=== PATIENT | female | born 1955 | race Caucasian/White ===

== ENCOUNTER 2016-09-11 07:28 | Inpatient (IN) | payer BC ==
--- NOTE | 2016-09-03 21:38 | HP ---
HISTORY AND PHYSICAL: DATE OF SURGERY: 09/11/16 DATE OF OFFICE VISIT: 08/31/16 CHIEF COMPLAINT: Left knee pain. PROCEDURE: Left total knee arthroplasty. HISTORY OF PRESENT ILLNESS: Ms. Lennon is a 60-year-old female with complaints of left knee pain secondary to advanced osteoarthritis. She has failed conservative management and elected to proceed with a left total knee arthroplasty, which is scheduled for 09/11/[address] Almaguer. PAST MEDICAL HISTORY: Hypertension, diabetes, thyroid disease, and osteoarthritis. PAST SURGICAL HISTORY: Tubal ligation, vulvectomy. CURRENT MEDICATIONS: 1. Metformin. 2. Tolterodine tartrate. 3. Latanoprost. 4. Amlodipine. 5. Lisinopril. 6. Timolol. 7. Vitamin B12. 8. Zyrtec. ALLERGIES: To HYDROCHLOROTHIAZIDE, METOPROLOL, PEANUTS, and LATEX. FAMILY HISTORY: Prostate cancer, asthma. SOCIAL HISTORY: She is a 60-year-old female. She lives alone. 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 She does not smoke, use drugs, or alcohol. REVIEW OF SYSTEMS: A complete 14-point review of systems was reviewed with the patient. All was negative or noncontributory. PHYSICAL EXAMINATION GENERAL: She is well developed, well nourished, in no acute distress. VITAL SIGNS: She stands 5 feet 5 inches tall, weighs 235 pounds. Her blood pressure is 152/93. Her heart rate is 70. HEENT: Normocephalic, atraumatic. NECK: Supple. No palpable lymph nodes. Trachea is midline. PULMONARY: Lungs are clear to auscultation bilaterally. No wheezes, rhonchi, or rales. CARDIO: Regular rate and rhythm. Strong S1, S2. No murmurs, gallops, or rubs. ABDOMEN: Soft, nontender, nondistended. NEUROLOGICAL: She is alert and oriented x3. Cranial nerves II through XII are intact. MUSCULOSKELETAL: Left lower extremity: The skin is intact. She has moderate joint effusion. Tenderness over the medial and lateral joint line. Her lower extremity muscle group strengths are intact to 5/5. She has intact sensation and 2+ dorsalis pedis pulses. ASSESSMENT AND PLAN: Ms. Lennon is a 60-year-old female with complaints of left knee pain secondary to advanced osteoarthritis. She has failed conservative management and has elected to proceed with a left total knee arthroplasty, which is scheduled for 09/11/[address] Almaguer discussed the risks and benefits of the surgery at today's visit and all of her questions were answered. Percocet, Colace, and Coumadin were sent to her pharmacy for postoperative pain control and DVT prophylaxis. She will see Dr. Almaguer back in 10 to 14 days after the surgery. NELLY CHACON [id number]/[facility] #: [id number]
[~2016-09-11 07:28] MED LIST: Buffered Lidocaine 1% SYRIN* 3 ML/SYR SYRINGE INTRADERM ONE
[2016-09-11] MEDS ORDERED: ceFAZolin 2 GM PREMIX(*) 2 GM/50 ML BAG IVPB ONE (07:33)
[2016-09-11] MEDS ORDERED: Midazolam* 1 MG/ML 5 ML VIAL (5 MG) ONE (09:04)
[2016-09-11] MEDS ORDERED: fentaNYL* 50 MCG/ML 2 ML VIAL (100 MCG VIAL) ONE (09:04)
[2016-09-11] MEDS ORDERED: Morphine PF AMP (0.5MG/ML)* 5 MG/10 ML AMP ONE (10:01)
[2016-09-11] MEDS ORDERED: Bupivacaine 0.5% SDV PF* 30 ML VIAL ONE (10:02)
[2016-09-11] MEDS ORDERED: Midazolam* 1 MG/ML 2 ML VIAL (2 MG) ONE (10:19)
[2016-09-11] MEDS ORDERED: Dexamethasone IV* 4 MG/ML 1 ML (4 MG) ONE (10:26)
[2016-09-11] MEDS ORDERED: Hetastarch in NS* 500 ML IV ONE (10:27)
[2016-09-11] MEDS ORDERED: diPHENhydraMINE IV* 50 MG/ML 1 ml VIAL (BENADRYL) ONE (10:27)
[2016-09-11] MEDS ORDERED: Dexmedetomidine* 200 MCG/2 ML 2 ML VIAL ONE (10:27)
[2016-09-11] MEDS ORDERED: DiMENhydriNATE IV* 50 MG/ML VIAL IV PUSH PRN (11:15)
[2016-09-11] MEDS ORDERED: Levalbuterol 0.63MG/3ML NEB INH PRN (11:15)
[2016-09-11] MEDS ORDERED: Ondansetron INJ* 2 MG/ML VIAL IV PRN ×2 (11:15→11:17)
[2016-09-11] MEDS ORDERED: fentaNYL* 50 MCG/ML 2 ML VIAL (100 MCG VIAL) IV PRN (11:15)
[2016-09-11] MEDS ORDERED: Acetaminophen TAB* 325 MG PO PRN (11:15)
[2016-09-11] MEDS ORDERED: HYDROcodone/ACETAMIN 5-325 MG* 1 TAB PO PRN ×2 (11:17)
[2016-09-11] MEDS ORDERED: PROCHLORPERAZINE INJ 5 MG/ML 2 ML VIAL IV PRN (11:17)
[2016-09-11] MEDS ORDERED: Naloxone* 0.4 MG/ML 1 ML VIAL IV PRN (11:17)
[2016-09-11] MEDS ORDERED: Nalbuphine* 20 MG/ML 1 ML VIAL IV PRN (11:17)
[2016-09-11] MEDS ORDERED: Bupivacaine 0.5% W/EPI SDV* 30 ML VIAL ONE (11:24)
[2016-09-11] MEDS ORDERED: Scopolamine 1.5 mg* PATCH TRANSDERM SCH (12:00)
[2016-09-11] MEDS ORDERED: Scopolomine PATCH Remove* 1 NOTE MISC PATCH OFF SCH (12:00)
[2016-09-11] MEDS ORDERED: Ketorolac INJ* 30 MG/ML 1 ML VIAL ONE (12:38)
[2016-09-11] MEDS ORDERED: Polyethylene Glycol 3350* 17 GM PACKET PO PRN (13:22)
[2016-09-11] MEDS ORDERED: Bisacodyl SUPP* 10 MG SUPP PR PRN (13:22)
[2016-09-11] MEDS ORDERED: LACTULOSE* 30 ML UDC PO PRN (13:22)
[2016-09-11] MEDS ORDERED: Albuterol HFA INHALER* 8 gm MDI INH PRN (13:26)
--- NOTE | 2016-09-11 14:19 | RAD ---
INDICATION: Status post total left knee replacement surgery. COMPARISON: Comparison is made with a prior x-ray study of the left knee from October 21, 2015. TECHNIQUE: 2 views of the left knee were obtained. FINDINGS: The patient is status post total left knee replacement surgery. The bones and prostheses are in normal alignment. There is a single surgical drain present anterior to the distal femur. IMPRESSION: STATUS POST TOTAL LEFT KNEE REPLACEMENT SURGERY.
[2016-09-11] MEDS ORDERED: Dextrose 50% Syringe 50 ML* 25 GM/50 ML SYRINGE IV PUSH PRN (14:46)
[2016-09-11] MEDS: Acetaminophen TAB* 325 MG PO SCH ×2 (15:48→22:00)
[2016-09-11] MEDS ORDERED: Warfarin TAB(*) 6 MG PO ONE (17:00)
[2016-09-11] MEDS: ceFAZolin 1 GM in Dextrose (*) 1 GM/50 ML BAG IVPB SCH (17:55)
[2016-09-11] MEDS: Latanoprost 0.005%* 2.5 ml BTL BOTH EYES SCH (17:56)
[2016-09-11] MEDS: Insulin LISPRO* 1 UNITS UNIT SUBCUT SCH (17:57)
[2016-09-11 21:30] LABS: Manual Entry Verification MD; Rapid HIV INT CONT QC Line Present; Rapid HIV Kit Lot# F209005
[2016-09-11] MEDS: Magnesium Hydroxide LIQ* 30 ML UDC PO SCH (22:00)
[2016-09-11] MEDS: Docusate CAP* 100 MG PO SCH (22:00)
[2016-09-11] MEDS: diPHENhydraMINE IV* 50 MG/ML 1 ml VIAL (BENADRYL) IV PRN (22:30)
--- NOTE | 2016-09-11 22:30 | CONS ---
CC: Dr. Ortiz; Dr. Almaguer CONSULTATION REPORT: DATE OF CONSULT: 09/11/16 PRIMARY CARE PROVIDER: Dr. Ortiz ATTENDING PHYSICIAN WHILE IN THE HOSPITAL: Dr. Joslyn Lujan (report being dictated by Johnnie reeves, DAVON). REQUESTING PHYSICIAN FOR CONSULTATION: Janet Almaguer MD REASON FOR MEDICAL CONSULTATION: Evaluation of medical problems and medical management. HISTORY OF PRESENTING ILLNESS: I refer you to Dr. Almaguer's H and P for further details. In short, Chente Lennon is a 60-year-old female patient that presents to orthopedic service today with complaints o f left knee pain. She actually was coming in for an elective left total knee replacement. She has been dealing in the outpatient setting with left knee pain for some time due to advanced osteoarthri tis. She failed conservative therapy and she elected to proceed with a left total knee. She does c arry a history of diabetes, hypertension, thyroid disease, which she is following with Dr. Pete for f or an official diagnosis, history of glaucoma and asthma, and because of this, we were asked to eval uate. She was evaluated in the PACU. She said she is feeling well. She said she feels a little ti red, but she denies having any chest pain, denies feeling like she is going to pass out, denies feel ing dizzy, denies having any nausea, denies having any abdominal pain, she denies having any chest p ain or any shortness of breath. She says that she is not having any pain in her knee. She did rece sonia Duramorph. She says she is feeling well. She says that she just feels a little drowsy. I thin k because of her medical complexity, we are asked to evaluate and consult. REVIEW OF SYSTEMS: There is no documented fever. She denied having significant weight change. The re was no double vision. There is no ear discharge. She denies having any rhinorrhea. There is no sore throat, no thyroid enlargement, denies having any chest pain. There is no orthopnea, no noctu rnal dyspnea. There is no abdominal pain. No nausea, no vomiting. No dysuria, no frequency. No s eizure, no loss of consciousness. No pruritus, no skin ulcerations. Review of 14 systems completed , all others negative. PAST MEDICAL HISTORY: Significant for: 1. Hypertension. 2. Diabetes. 3. Osteoarthritis. 4. Asthma. 5. Glaucoma. 6. Thyroid disease. PAST SURGICAL HISTORY: 1. She has had a tubal ligation. 2. Left total knee replacement done today with Dr. Almaguer. 3. D and C. FAMILY HISTORY: Mother has a history of hypertension and Parkinson's. Father had prostate cancer. SOCIAL HISTORY: She does not smoke. She does not drink. 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 Her surrogate kulwinder on maker is her daughter Dena. ALLERGIES: Include HYDROCHLOROTHIAZIDE, LOPRESSOR, PEANUTS and LATEX. HOME MEDICATIONS: Include: 1. Metformin 1000 mg p.o. daily. 2. Detrol 4 mg daily. 3. Timolol 1 drop both eyes q.a.m. 4. Lisinopril 40 mg daily. 5. Latanoprost 1 drop both eyes q.p.m. 6. Osteo Bi-Flex 2 tablets p.o. daily. 7. B12 1000 mcg daily. 8. Coconut oil 4 capsules p.o. daily. 9. Zyrtec 10 mg p.o. daily. 10. Norvasc 10 mg daily. 11. Ventolin 2 puffs inhaled every 4 hours as needed. 12. Tylenol 1000 mg every 8 hours as needed. PHYSICAL EXAMINATION: VITAL SIGNS: Blood pressure 98/58, pulse 60, respirations 18, O2 sat of 100% , temperature 97.7. GENERAL: At this time, Ms. Lennon is a 60-year-old female patient. She is sitting in the ER [facility]. She does not appear to be in any acute distress. HEENT: Head is atraumatic and normocephalic. Eyes: EOMs are intact. Sclerae was anicteric and no t pale. Throat: Oral mucosa appears to be moist. No oropharyngeal erythema. NECK: Supple. HEART: Heart sounds S1 and S2, regular rate and rhythm. No murmurs, rubs or gallops. LUNGS: Clear to auscultation bilaterally. No wheezes, rales or rhonchi. ABDOMEN: Soft, it was flat, nontender. Bowel sounds are present. EXTREMITIES: Distal CSM checks were intact to the lower extremities. She is able to move the upper extremities with 5/5 strength. She can lift the lower extremity bed only at this point. NEUROLOGIC: She is awake, alert and oriented x3. No gross focal deficits. SKIN: Intact with the exception there is an incision to the left knee, which is covered with a dres sing. Hemovac is intact. LABORATORY DATA AND DIAGNOSTIC STUDIES: Preoperative WBC of 9.6, RBC of 4.98, hemoglobin 13.9, jack tocrit of 42, platelet count of 337. INR 1.06, PTT of 25.5, sodium 139, potassium 4.1, chloride 103 , bicarb 30, BUN 11, creatinine 0.65, glucose was 98. The total bilirubin was 0.5, AST 16, ALT 15, alk phos 88. Urine showed 1+ protein, 1+ blood, trace leukocyte esterase, and present squamous epit helial cells. Preop TSH was less than 0.03. She did have an EKG preoperatively, which showed a normal sinus rhythm at a rate of 68. No ST eleva tions or T-wave inversions. Preop chest x-ray shows no active disease. Old medical records were re viewed. ASSESSMENT AND PLAN: Ms. Lennon is a 60-year-old female patient coming into the PACU today after an e lective total knee. Hospitalist service was asked to evaluate and consult. Recommendations at this point are: 1. Status post left total knee. I will defer the management to Dr. Almaguer and her team. 2. Hypertension. Blood pressure is in the 100s or upper 90s postop. I am going to hold her blood pressure meds and restart as they are tolerated. 3. Diabetes. Hold the metformin and continue the sliding scale. 4. Arthritis. We will defer to the primary team. 5. Asthma. P.r.n. albuterol has been ordered. We will continue. 6. Glaucoma. We will continue her latanoprost. We will hold the timolol. 7. History of thyroid disease. Again, it appears that she is being worked up for hyperthyroidism. She is being worked up with Dr. Pete. We can try to get those records or consult him tomorrow if it is an issue, but we will continue to follow this, and she can follow up with him. 8. DVT prophylaxis. We will defer to the primary team. 9. Code status. Full code. 10. Nutrition. I would recommend a heart healthy, consistent carb diet. TIME SPENT: Time spent on the consult was approximately 60 minutes; greater than half the time spen t [id number] with the patient obtaining the history and physical, the other half the time was spen t going over the plan of care with the patient and implementing the plan of care. I discussed the p britton of care with my attending, Dr. Lujan; she is in agreement. JOHNNIE DAILEY, EDGER HAND [id number]/[facility] #: [id number]
[2016-09-12] MEDS: ceFAZolin 1 GM in Dextrose (*) 1 GM/50 ML BAG IVPB SCH ×2 (00:38→09:12)
[2016-09-12] MEDS: Acetaminophen TAB* 325 MG PO SCH (00:39)
[2016-09-12] MEDS: diPHENhydraMINE IV* 50 MG/ML 1 ml VIAL (BENADRYL) IV PRN (00:40)
[2016-09-12] MEDS ORDERED: oxyCODONE TAB* 5 MG TAB PO PRN (03:00)
[2016-09-12] MEDS ORDERED: oxyCODONE/Acetamin 5/325 MG* TAB PO PRN (03:00)
[2016-09-12] MEDS ORDERED: Ondansetron TAB* 4 MG PO PRN (03:00)
[2016-09-12] MEDS ORDERED: Ondansetron INJ* 2 MG/ML VIAL IV PRN (03:00)
[2016-09-12] MEDS ORDERED: diPHENhydraMINE IV* 50 MG/ML 1 ml VIAL (BENADRYL) IV PRN (03:00)
[2016-09-12] MEDS ORDERED: Acetaminophen TAB* 325 MG PO PRN (03:00)
[2016-09-12] MEDS ORDERED: diPHENhydraMINE PO* 25 MG PO PRN (03:00)
[2016-09-12 07:28] LABS: Hematocrit 27 % (35-47); Hemoglobin 9.1 g/dl (12.0-16.0); Mean Corpuscular HGB Conc 34 g/dl (31-36); Mean Corpuscular Hemoglobin 28 pg (27-31); Mean Corpuscular Volume 85 fL (80-97); Mean Platelet Volume 8 um3 (7.4-10.4); Red Blood Count 3.21 10^6/ul (4.0-5.4); Red Cell Distribution Width 13 % (10.5-15); White Blood Count 10.2 10^3/ul (3.5-10.8)
[2016-09-12 07:33] LABS: BUN/Creatinine Ratio 19.2 (8-20); Calcium 8.3 mg/dL (8.6-10.3); EGFR African American 155.2 (>60); EGFR Non-African American 120.7 (>60); Potassium 4.1 mmol/L (3.5-5.0)
[2016-09-12] MEDS: Insulin LISPRO* 1 UNITS UNIT SUBCUT SCH ×3 (07:33→17:30)
[2016-09-12] MEDS ORDERED: NON FORMULARY MED* (Lisinopril [Lisinopril 40 Mg-] 40 MG) PO SCH (09:00)
[2016-09-12] MEDS ORDERED: OPTH BOTH EYES SCH (09:00)
[2016-09-12] MEDS ORDERED: AMLODIPINE BESYLATE PO SCH (09:00)
[2016-09-12] MEDS ORDERED: TIMOLOL 0.5% BOTH EYES SCH (09:00)
[2016-09-12] MEDS: Oxybutynin XL TAB* 5 MG PO SCH (09:10)
[2016-09-12] MEDS: Docusate CAP* 100 MG PO SCH ×2 (09:11→20:20)
[2016-09-12] MEDS: Cyanocobalamin TAB* 500 MCG PO SCH (09:11)
[2016-09-12] MEDS: Cetirizine* 10 MG TAB PO SCH (09:11)
[2016-09-12] MEDS: Magnesium Hydroxide LIQ* 30 ML UDC PO SCH ×2 (09:12→20:20)
--- NOTE | 2016-09-12 09:34 | PN ---
Progress Note - Progress Note SOAP: Subjective: []Patient seen, OOB in chair. Feeling mild nausea after percocet. No SOB or Chest pain. Pain managed adequately. Objective: [] Vital Signs Temp 97.8 F 09/12/16 07:07 Pulse 67 09/12/16 07:07 Resp 18 09/12/16 09:13 BP 107/42 09/12/16 07:07 Pulse Ox 100 09/12/16 08:00 Intake & Output 09/11/16 09/12/16 09/12/16 18:59 06:59 18:59 Intake Total 2250 2653 Output Total 400 1325 700 Balance 1850 1328 -700 Weight 231 lb Intake: IV Fluids 2250 570 HEXTEND 500 LR 1700 570 NS 50ML, Cefazolin 2G 50 IVPB 1043 LR 1043 Oral 1040 Output: Lehman 400 1025 650 Emesis 300 50 Laboratory Results - last 24 hr 09/11/16 09/11/16 09/11/16 07:45 13:47 14:31 WBC RBC Hgb Hct MCV MCH MCHC RDW Plt Count MPV Neut % (Auto) Lymph % (Auto) Ford % (Auto) Eos % (Auto) Baso % (Auto) Absolute Neuts (auto) Absolute Lymphs (auto) Absolute Monos (auto) Absolute Eos (auto) Absolute Basos (auto) Absolute Nucleated RBC Nucleated RBC % INR (Anticoag Therapy) Sodium Potassium Chloride Carbon Dioxide Anion Gap BUN Creatinine Est GFR ( Amer) Est GFR (Non-Af Amer) BUN/Creatinine Ratio Glucose POC Glucose (mg/dL) 105 139 H Calcium HIV 1&2 Antibody Rapid Nonreactive 09/11/16 09/12/16 09/12/16 16:42 06:29 06:29 WBC 10.2 RBC 3.21 L Hgb 9.1 L Hct 27 L MCV 85 MCH 28 MCHC 34 RDW 13 Plt Count 234 MPV 8 Neut % (Auto) 65.5 Lymph % (Auto) 21.5 L Ford % (Auto) 12.5 H Eos % (Auto) 0.2 Baso % (Auto) 0.3 Absolute Neuts (auto) 6.7 Absolute Lymphs (auto) 2.2 Absolute Monos (auto) 1.3 H Absolute Eos (auto) 0 Absolute Basos (auto) 0 Absolute Nucleated RBC 0 Nucleated RBC % 0 INR (Anticoag Therapy) 1.16 H Sodium Potassium Chloride Carbon Dioxide Anion Gap BUN Creatinine Est GFR ( Amer) Est GFR (Non-Af Amer) BUN/Creatinine Ratio Glucose POC Glucose (mg/dL) 202 H Calcium HIV 1&2 Antibody Rapid 09/12/16 09/12/16 06:29 07:24 WBC RBC Hgb Hct MCV MCH MCHC RDW Plt Count MPV Neut % (Auto) Lymph % (Auto) Ford % (Auto) Eos % (Auto) Baso % (Auto) Absolute Neuts (auto) Absolute Lymphs (auto) Absolute Monos (auto) Absolute Eos (auto) Absolute Basos (auto) Absolute Nucleated RBC Nucleated RBC % INR (Anticoag Therapy) Sodium 137 Potassium 4.1 Chloride 104 Carbon Dioxide 28 Anion Gap 5 BUN 10 Creatinine 0.52 Est GFR ( Amer) 155.2 Est GFR (Non-Af Amer) 120.7 BUN/Creatinine Ratio 19.2 Glucose 122 H POC Glucose (mg/dL) 128 H Calcium 8.3 L HIV 1&2 Antibody Rapid Left knee dressings are dry and intact Hemovac drain removed, tip intact- 400cc in canister Calf nontender and soft +DF/PF left foot neuro intact Assessment: []s/p Left total knee arthroplasty POD #1 Plan: []PT/OT WBAT LLE Coumadin w Lovenox bridge: 6mg today Home on Saturday
[2016-09-12] MEDS ORDERED: HYDROcodone/ACETAMIN 5-325 MG* 1 TAB PO PRN (09:37)
--- NOTE | 2016-09-12 11:38 | OP ---
OPERATIVE NOTE: DATE OF OPERATION: 09/11/16 DATE OF : 57 ATTENDING SURGEON: Janet Almaguer MD CHURCH BUSINESS ADMINISTRATOR: NELLY Mendoza. ANESTHESIOLOGIST: Dr. Roger. ANESTHESIA: Spinal with adductor nerve block. PRE-OP DIAGNOSIS: Severe end-stage degenerative osteoarthritis of the left knee joint. POST-OP DIAGNOSIS: Severe end-stage degenerative osteoarthritis of the left knee joint. OPERATIVE PROCEDURE: Left total knee arthroplasty. TOURNIQUET TIME: 68 minutes. COMPLICATIONS: None. ESTIMATED BLOOD LOSS: 400 cc. SPECIMEN: Bone and cartilage from the left knee joint sent to pathology. HARDWARE USED: This is cemented left total knee arthroplasty hardware. For the femur, a size 4 lef t posterior stabilized Legion Oxinium femoral component. For the tibia, a size 3 left tibial base p late. Insert was a 11-mm posterior stabilized articular insert and the patella was 32-mm 3-peg all poly patella. Two packages of Simplex bone cement were used. BRIEF HISTORY/INDICATIONS: Ms. Lennon is a 60-year-old morbidly obese female with years of increasing ly severe bilateral knee pain, left greater than right. She failed conservative treatment with anti inflammatories, pain medications, attempted weight loss, intraarticular injections, and ambulatory a ssistive devices as well as physical therapy. She elected to have left total knee arthroplasty due to continued pain and decreased quality of life. Informed consent was obtained from the patient. She understood the risks of surgery, included but w ere not limited to bleeding, infection, damage to nearby structures, continued pain, need for furthe r surgery, intraoperative fracture, nerve palsy, hardware failure or loosening, stroke, heart attack , blood clot, and . She wished to proceed. INTRAOPERATIVE FINDINGS: Intraoperatively, the patient is noted to have severe stiffness of the kne e preoperatively from 20 to 70 degrees of motion. Intraoperatively, the exposure was difficult becau se of the knee stiffness and extensive osteophytosis in the posterior aspect of the knee. She was n oted to have severe end-stage arthritis of the knee joint, which was tricompartmental, but worst in the medial and patellofemoral compartments. DESCRIPTION OF PROCEDURE: Ms. Lennon was identified in the pre-anesthesia unit. Her left lower extre mity was marked as the correct operative side. Informed consent was signed and placed in the chart. The patient was taken to the operating room and placed under spinal anesthesia with an adductor ne rve block. Tourniquet was placed on the left side. A Lehman catheter was placed. Left lower extrem ity was prepped and draped in the usual sterile fashion. Preop time-out was made to correctly ident kathe the patient's side and site. Appropriate perioperative antibiotics were given within 1 hour of incision. Tourniquet was inflated and total tourniquet time for this procedure was 68 minutes. A midline 15 c m incision was made with a 10 blade and carried down to the extensor mechanism. A new 10-blade was used to make a standard medial parapatellar arthrotomy. The patella was everted and the oscillating saw was used to remove 8 mm of patellar bone and cartilage. Osteophytes were carefully removed. T his was done initially to aid with exposure. Pre-existing range of motion was about 20 to 75 degree s of flexion. Electrocautery was used to subperiosteally elevate soft tissue off the superomedial t ibia to the mid sagittal plane. Osteophytes were carefully removed from around the medial tibial pl ateau. The knee was flexed up as much as possible. A drill was used to enter the distal femur. In tramedullary distal femoral cutting block was pinned on the distal femur. An extra 2 mm of distal f emur was carefully taken with an oscillating saw. ACL and anterior horn of the lateral meniscus were sharply released. The external rotation guide wa s placed on the distal femur and pinned into position. Distal femur was sized to a size 4. A size 4 multi-cutting jig was carefully pinned on the distal femur. Oscillating saw was used to make the appropriate 4 chamfer cuts. At this point, the knee was flexed to about 90 degrees. Osteophytes were carefully removed along th e posterior femur. There were many loose bodies in the posterior capsule. Extramedullary tibial cutting guide was pinned into proper position on the proximal tibia. Oscillat ing saw was used to make a proximal tibial cut, perpendicular to the mechanical access of the tibia. The bone was carefully removed. Once again, the posterior capsule was checked for any osteophytes . The knee was brought out into full extension and noted to have good placement of spacer block wit h full extension. The medial and lateral ligamentous balancing was equal. Lamina bitumen plant operator was placed both medially and laterally. Any remaining meniscus was carefully remove d with electrocautery. Curved osteotome was used to remove any remaining osteophytes along the post erior femoral condyles. Tibial tray and drop marianela was placed to once again confirm satisfactory prox imal tibial cut. This was confirmed. A size 4 left femoral trial was impacted on the distal femur. This trial had good fit. The box for the posterior stabilized implant was prepared using a reamer and box cut osteotome. A size 3 tibia l tray trial with a 9 mm insert trial was placed. The knee was taken through range of motion and not ed to have full extension to 120 degrees of flexion. Flexion was inhibited by morbid obese body habitus. There was good flexion and extension gap balanc ing. Good medial and lateral stability. The patella was everted. The patellar cut seemed to be satisfactory. The patella was sized to a si ze 32. Three peg holes were drilled through the size 32 guide. The 32 trial patella was placed. Th e knee was taken through range of motion. There was satisfactory patellofemoral tracking. All trials were carefully removed. The tibia was subluxed anteriorly and sized to a size 3. Proxim al tibia was prepared using a keel punch size 3. All bony cut surfaces were copiously irrigated and dried. The final implants were cemented into place using 2 packages of Simplex bone cement. This was first the tibia, followed by the femur, and last the patella. An 11-mm insert trial was placed and the knee was brought out into full extension. The cement was allowed to fully cure and the tour niquet was turned down at 68 minutes and the excess cement was carefully removed. Once the cement was fully cured, the knee was checked for any bleeding or extra cement. Extra cemen t was carefully removed. Electrocautery was used to obtain meticulous hemostasis. A size 11 posterior stabilized insert was chosen as the final implant. This was locked into positio n on the tibial tray without difficulty. Stability of the insert was checked and rechecked and note d to be stable. Final range of motion with full extension to 120 degrees of flexion. The knee was copiously irrigat ed with sterile saline. The extensor mechanism was closed over a medium Hemovac drain using interru pted #1 Vicryl. The rest of the incision was closed in a layered fashion using 0 and 2-0 Vicryl. S kin was closed using running 3-0 nylon suture. Sterile Xeroform, 4x4's, and Webril were used to cover the incision. Ernesto wrap and cold pack were pl aced over this. The patient's anesthesia was reversed without difficulty. She was taken to the PACU in stable condi tion. Intended weightbearing will be weightbearing as tolerated. Intended DVT prophylaxis will be Coumadin with a Lovenox bridge. [id number]/[facility] #: [id number]
[2016-09-12] MEDS: HYDROcodone/ACETAMIN 5-325 MG* 1 TAB PO PRN ×3 (12:05→21:38)
[2016-09-12] MEDS: Enoxaparin(*) 30 MG/0.3 ML SYR SUBCUT SCH (13:54)
--- NOTE | 2016-09-12 14:57 | PN ---
Subjective Date of Service: 09/12/16 Interval History: Patient is POD 1 s/p TKR. She offers no acute complaints. She reports her pain is well controlled. She reports some vomiting overnight, but it has improved this am. No persistent nausea. No CP or SOB. Objective Active Medications: Acetaminophen (Tylenol Tab*) 650 mg PO Q4H PRN PRN Reason: mild pain or fever Hydrocodone Bitart/Acetaminophen ([place] 5-325 Tab*) 1 tab PO Q3H PRN PRN Reason: mild to moderate pain Hydrocodone Bitart/Acetaminophen ([place] 5-325 Tab*) 2 tab PO Q3H PRN PRN Reason: moderate to severe pain Last Admin: 09/12/16 12:05 Dose: 2 tab Albuterol (Ventolin Hfa Inhaler*) 2 puff INH Q4H PRN PRN Reason: Allergy Symptoms Bisacodyl (Dulcolax Supp*) 10 mg MO DAILY PRN PRN Reason: constipation Cetirizine HCl (Zyrtec*) 10 mg PO DAILY [facility] PRN Reason: Protocol Last Admin: 09/12/16 09:11 Dose: 10 mg Cyanocobalamin (Vitamin B12 Tab*) 1,000 mcg PO DAILY [facility] Last Admin: 09/12/16 09:11 Dose: 1,000 mcg Dextrose (D50w Syringe 50 Ml*) 12.5 gm IV PUSH .FOR FS < 60 - SS PRN PRN Reason: FS < 60 Diphenhydramine HCl (Benadryl Iv*) 12.5 mg IV Q6H PRN PRN Reason: PRURITIS Diphenhydramine HCl (Benadryl Po*) 25 mg PO Q6H PRN PRN Reason: itching Docusate Sodium (Colace Cap*) 100 mg PO BID [facility] Last Admin: 09/12/16 09:11 Dose: 100 mg Enoxaparin Sodium (Lovenox(*)) 30 mg SUBCUT Q24H [facility] Last Admin: 09/12/16 13:54 Dose: 30 mg Gabapentin (Neurontin Cap(*)) 300 mg PO BEDTIME [facility] Lactated Ringer's (Lactated Ringers 1000 Ml Bag*) 1,000 mls @ 100 mls/hr IV PER RATE [facility] Last Admin: 09/12/16 11:54 Dose: 100 mls/hr Insulin Human Lispro (Humalog*) 0 units SUBCUT AC [facility] PRN Reason: Protocol Last Admin: 09/12/16 12:06 Dose: 2 unit Lactulose (Lactulose*) 30 ml PO Q6H PRN PRN Reason: constipation Latanoprost (Xalatan 0.005%*) 1 drop BOTH EYES QPM [facility] Last Admin: 09/11/16 17:56 Dose: 1 drop Magnesium Hydroxide (Milk Of Magncandelaria Liq*) 30 ml PO BID [facility] Last Admin: 09/12/16 09:12 Dose: 30 ml Ondansetron HCl (Zofran Inj*) 4 mg IV Q6H PRN PRN Reason: nausea Last Admin: 09/12/16 08:34 Dose: 4 mg Ondansetron HCl (Zofran Tab*) 4 mg PO Q6H PRN PRN Reason: NAUSEA Oxybutynin Chloride (Ditropan Xl Tab*) 10 mg PO DAILY [facility] PRN Reason: Protocol Last Admin: 09/12/16 09:10 Dose: 10 mg Oxycodone HCl (Roxycodone Tab*) 10 mg PO Q4H PRN PRN Reason: breakthrough pain Last Admin: 09/12/16 07:32 Dose: 10 mg Oxycodone/Acetaminophen (Percocet 5/325 Tab*) 1 tab PO Q3H PRN PRN Reason: PAIN - MODERATE Pharmacy Profile Note (Scopolomine Patch Remove*) 1 note PATCH OFF .AFTER 72 HOURS [facility] Stop: 09/14/16 11:18 Pharmacy Profile Note (Coumadin Daily Reminder*) 1 note FOLLOW UP 1700 [facility] Polyethylene Glycol/Electrolytes (Miralax*) 17 gm PO DAILY PRN PRN Reason: Constipation Scopolamine (Transderm-Scop 1.5 Mg Patch*) 1 patch TRANSDERM Q72H [facility] Last Admin: 09/11/16 15:23 Dose: Not Given Warfarin Sodium (Coumadin Tab(*)) 6 mg PO ONCE@1700 [facility] PRN Reason: Protocol Stop: 09/12/16 17:01 Vital Signs: Temp Pulse Resp BP Pulse Ox 97.2 F 78 18 137/66 98 09/12/16 11:42 09/12/16 11:42 09/12/16 12:05 09/12/16 11:42 09/12/16 11:42 Appearance: Well appearing, in NAD Respiratory: Symmetrical Chest Expansion and Respiratory Effort, Clear to Auscultation Cardiovascular: NL Sounds; No Murmurs; No JVD, RRR Abdominal: NL Sounds; No Tenderness; No Distention Extremities: No Edema Skin: No Rash or Ulcers Neurological: Alert and Oriented x 3 Result Diagrams: 09/12/16 06:29 09/12/16 06:29 Assess/Plan/Problems-Billing Assessment: This is a 60 yo female with NIDDM, HTN, hypothyroidism, glaucoma and mild intermittent asthma who is s/p L TKR by Dr Almaguer 09/11/16. Hospitalist group has been consulted for medical comanagement. - Patient Problems (1) Status post total left knee replacement Comment: POD 1 Management per ortho team (2) Diabetes Comment: NIDDM HgbA1c 5.5% Metformin has been held postoperatively Monitoring glucose with meals and will cover hyperglycemia with SS Humalog (3) Hypertension Comment: Normotensive amlodipine and lisinopril have been held today, will resume for tomorrow (4) Hypothyroidism (5) Asthma Comment: Without acute exacerbation mild-intermittent Seems to be mostly allergy mediated, rarely requires her inhaler (6) Glaucoma (7) DVT prophylaxis Comment: per ortho Status and Disposition: Discharge planning per ortho. No acute medical concerns
[2016-09-12] MEDS ORDERED: Warfarin TAB(*) 6 MG PO SCH (17:00)
[2016-09-12] MEDS: Latanoprost 0.005%* 2.5 ml BTL BOTH EYES SCH (17:28)
[2016-09-12] MEDS ORDERED: Gabapentin CAP(*) 300 MG PO SCH (21:00)
[2016-09-13] MEDS: HYDROcodone/ACETAMIN 5-325 MG* 1 TAB PO PRN ×3 (07:11→15:37)
[2016-09-13] MEDS: Insulin LISPRO* 1 UNITS UNIT SUBCUT SCH ×3 (07:12→17:09)
[2016-09-13 07:45] LABS: Hematocrit 28 % (35-47); Hemoglobin 9.4 g/dl (12.0-16.0)
[2016-09-13] MEDS ORDERED: Lisinopril TAB* 10 MG PO SCH (09:00)
[2016-09-13] MEDS ORDERED: amLODIPine TAB* 5 MG PO SCH (09:00)
[2016-09-13] MEDS: Magnesium Hydroxide LIQ* 30 ML UDC PO SCH (09:02)
[2016-09-13] MEDS: Docusate CAP* 100 MG PO SCH (09:03)
[2016-09-13] MEDS: Cyanocobalamin TAB* 500 MCG PO SCH (09:03)
[2016-09-13] MEDS: Oxybutynin XL TAB* 5 MG PO SCH (09:03)
[2016-09-13] MEDS: Cetirizine* 10 MG TAB PO SCH (09:03)
--- NOTE | 2016-09-13 09:17 | PN ---
Progress Note - Progress Note SOAP: Subjective: Pt. doing well, pain controlled. Objective: LLE - dressing changed, inc c/d/i. distally no edema, nvi. Vital Signs: Temp Pulse Resp BP Pulse Ox 98.5 F 101 18 133/66 100 09/13/16 07:26 09/13/16 07:26 09/13/16 09:05 09/13/16 07:26 09/13/16 07:26 Laboratory Results - last 24 hr 09/11/16 09/12/16 09/12/16 14:31 06:29 12:01 Hgb Hct INR (Anticoag Therapy) POC Glucose (mg/dL) 134 H Hemoglobin A1c 5.5 Hepatitis B Antibody Nonreactive Hep Bs Antibody, Quant < 3.10 Hepatitis C Antibody Nonreactive 09/12/16 09/13/16 09/13/16 17:27 06:59 06:59 Hgb 9.4 L Hct 28 L INR (Anticoag Therapy) 1.67 H POC Glucose (mg/dL) 122 H Hemoglobin A1c Hepatitis B Antibody Hep Bs Antibody, Quant Hepatitis C Antibody 09/13/16 07:06 Hgb Hct INR (Anticoag Therapy) POC Glucose (mg/dL) 144 H Hemoglobin A1c Hepatitis B Antibody Hep Bs Antibody, Quant Hepatitis C Antibody Assessment: 60 yo POD 2 s/p LTKA Plan: wbat lle pt/ot 6 mg coumadin tonight plan d/c to home today with vns give lovenox dose today
[2016-09-13] MEDS: Enoxaparin(*) 30 MG/0.3 ML SYR SUBCUT SCH (13:32)
[2016-09-13 16:35] VITALS: BP 133/74
--- NOTE | 2016-09-14 01:11 | DS ---
DISCHARGE SUMMARY: DATE OF ADMISSION: 09/11/16 DATE OF DISCHARGE: 09/13/16 ATTENDING PHYSICIAN: Janet Almaguer MD ADMISSION DIAGNOSIS: Severe end-stage degenerative arthritis of the left knee. DISCHARGE DIAGNOSES: Severe end-stage degenerative arthritis of the left knee. SURGERY PERFORMED: Left total knee arthroplasty. HOSPITAL COURSE: The patient is a 60-year-old female who had years of increasingly severe bilateral knee pain with the left being much more severe than the right. The patient failed conservative management with pain medications , antiinflammatories, intraarticular cortisone injections, physical therapy, and assistive ambulatory devices. She elected to proceed with surgical intervention and was taken to the operating room under the care of Dr. Janet Almaguer on the date of 09/11/16. The patient tolerated the procedure well and left the operating room in stable condition. Postoperatively, she mastered her physical therapy and occupational therapy goals without difficulty. She had no acute postoperative complications. She was placed on Coumadin with a Lovenox bridge during her hospital stay. She felt that she was ready for discharge and physical therapy concurred. Therefore, she is discharged home on the date of . CONDITION ON DISCHARGE: The patient is afebrile. Her vital signs are stable. Her left knee incision is healing without evidence of injection. Her nylon sutures are intact. Her calf is soft and nontender. She has full dorsiflexion and plantar flexion of her left ankle. Her gross neurovascular status is intact. Her calf is soft and nontender. PLAN/RECOMMENDATIONS: Discharged to home. Continue with physical therapy bearing weight as tolerated on the left lower extremity. She will continue on Coumadin for DVT prophylaxis. She is instructed to take 6 mg of Coumadin evening 5 p.m. She is instructed to take 2 mg on 09/14/16; 2 mg on 09/15/16; and 2 mg on 09/16/16. She is scheduled to have a repeat INR blood draw on Saturday the . The office will contact her with her next dose thereafter. Her Percocet prescription has been filled at the pharmacy already. She will followup with Dr. Almaguer in 10 to 14 days. She may shower in 48 hours from discharge today. NELLY SANCHEZ [id number]/[facility] #: [id number] JAYA
== END 2016-09-13 17:15 | disposition home health service (06) | DRG 302 ==
LOC: AA 07:28 → SSU 14:59
PROVIDERS: ADMIT Orthopaedic Surgery Adult Reconstructive Orthopaedic Surgery; ATTEND Orthopaedic Surgery Adult Reconstructive Orthopaedic Surgery
PROC: 0SRD0J9 Replacement of Left Knee Joint with Synthetic Substitute, Cemented, Open Approach (ICD-10-PCS; principal; 2016-09-11 10:00)
DX: M17.12 Unilateral primary osteoarthritis, left knee (principal); E66.01 Morbid (severe) obesity due to excess calories; I10 Essential (primary) hypertension; Z68.38 Body mass index [BMI] 38.0-38.9, adult; E11.9 Type 2 diabetes mellitus without complications; J45.909 Unspecified asthma, uncomplicated; E03.9 Hypothyroidism, unspecified; R01.1 Cardiac murmur, unspecified; R11.10 Vomiting, unspecified; H40.9 Unspecified glaucoma; Z79.84 Long term (current) use of oral hypoglycemic drugs; Z82.49 Family history of ischemic heart disease and other diseases of the circulatory system; Z88.8 Allergy status to other drugs, medicaments and biological substances; Z91.010 Allergy to peanuts; Z91.040 Latex allergy status; Z79.01 Long term (current) use of anticoagulants
CPT/HCPCS: 36415; 80048; 83036; 85014; 85018; 85025; 85610; 86703; 86706; 86803; 88305; 88311; 94760; A9270-GY; C1776; J0690; J1100; J1200; J1650; J1885; J2250; J2405; J3010

== ENCOUNTER 2016-10-17 07:22 | Emergency (ER) | payer BC ==
[2016-10-17 08:03] VITALS: BP 155/74
--- NOTE | 2016-10-17 09:38 | UC ---
Throat Pain/Nasal Chad HPI - HPI Summary HPI Summary: [address], COUGH, CONGESTION. GETTING WORSE. NO FEVER OR EAR PAIN. - History of Current Complaint Chief Complaint: UCRespiratory Stated Complaint: SORE THROAT/COUGH Time Seen by Provider: 10/17/16 09:30 Hx Obtained From: Patient Onset/Duration: Gradual Onset, Lasting Days, Still Present Severity: Moderate Pain Intensity: 8 Pain Scale Used: 0-10 Numeric Cough: Sputum Appears - GREEN Associated Signs & Symptoms: Positive: Nasal Discharge. Negative: Wheezing, Hoarseness, Sinus Discomfort, Fever, Vomiting, Rash - Allergies/Home Medications Allergies/Adverse Reactions: Allergies Allergy/AdvReac Type Severity Reaction Status Date / Time Latex Allergy Severe Rash Verified 09/11/16 07:47 Peanut-containing Drug Allergy Severe gi and Verified 09/11/16 07:47 Products vomiting Hydrochlorothiazide Allergy Intermediate rash, Verified 09/11/16 07:47 itching Metoprolol Allergy Intermediate Rash, Verified 09/11/16 07:47 itching PMH/Surg Hx/FS Hx/Imm Hx Endocrine History Of: Reports: Diabetes, Thyroid Disease - md monitoring thyroid Cardiovascular History Of: Reports: Hypertension Respiratory History Of: Reports: Asthma - ALLERGY INDUCED Cancer History Of: Denies: Breast Cancer - Surgical History Surgical History: Yes Surgery Procedure, Year, and Place: left knee replacement 5weeks ago - Family History Known Family History: Positive: Hypertension - Social History Alcohol Use: None Substance Use Type: None Smoking Status (MU): Never Smoked Tobacco - Immunization History Most Recent Influenza Vaccination: 2016 Most Recent Tetanus Shot: up to date Most Recent Pneumonia Vaccination: none Review of Systems Constitutional: Fatigue ENT: Sore Throat, Nasal Discharge Respiratory: Cough Cardiovascular: Negative Gastrointestinal: Negative All Other Systems Reviewed And Are Negative: Yes Physical Exam Triage Information Reviewed: Yes Appearance: No Pain Distress, Well-Nourished, Ill-Appearing - MILD Vital Signs: Initial Vital Signs Temp 98.6 F 10/17/16 07:58 Pulse 79 10/17/16 07:58 Resp 18 10/17/16 07:58 BP 155/74 10/17/16 07:58 Pulse Ox 97 10/17/16 07:58 Vital Signs Reviewed: Yes Eyes: Positive: Conjunctiva Clear ENT: Positive: Hearing grossly normal, Pharynx normal, Nasal congestion, TMs normal Neck: Positive: Supple, Nontender, No Lymphadenopathy Respiratory Exam: Normal Cardiovascular Exam: Normal Abdomen Description: Positive: Soft Musculoskeletal: Positive: No Edema Neurological: Positive: Alert Psychological: Positive: Age Appropriate Behavior Skin: Negative: rashes Throat Pain/Nasal Course/Dx - Differential Dx/Diagnosis Provider Diagnoses: ACUTE URI Discharge - Discharge Plan Condition: Stable Disposition: HOME Patient Education Materials: Upper Respiratory Infection (ED) Referrals: Mauricio Ortiz MD [Primary Care Provider] - If Needed Additional Instructions: ACUTE UPPER RESPIRATORY INFECTION The common cold is a benign self-limited syndrome representing a group of diseases caused by members of several families of viruses. It is the most frequent acute illness in the [place] and throughout the industrialized world. The term "common cold" refers to a mild upper respiratory viral infection involving, to variable degrees, nasal congestion and discharge ( rhinorrhea), sneezing, sore throat, cough, low-grade fever, headache, and malaise. Symptomatic therapy remains the mainstay of common cold treatment. In the absence of convincing evidence of a secondary bacterial infection, antibiotics are not effective in the treatment of the common cold and should not be prescribed. Be advised that the usual course and duration of illness is up to one and a half weeks for patients with a cold, but can last slightly longer; symptoms usually persist longer in smokers.
== END 2016-10-17 09:46 | disposition home or self-care (01) ==
LOC: UCEAST 07:22
DX: J06.9 Acute upper respiratory infection, unspecified (principal); E11.9 Type 2 diabetes mellitus without complications; E07.9 Disorder of thyroid, unspecified; I10 Essential (primary) hypertension
CPT/HCPCS: 99211; G0463

== ENCOUNTER 2017-02-25 13:21 | Emergency (ER) | payer BC ==
[2017-02-25] MEDS ORDERED: Meclizine TAB* 12.5 MG PO ONE ×2 (14:24→15:03)
--- NOTE | 2017-02-25 14:24 | UC ---
Dizzy HPI HPI Summary: allergies and ear congestion ---and began with some vertigo-- - History Of Current Complaint Chief Complaint: UCDizziness Stated Complaint: DIZZY-2 DAYS Time Seen by Provider: 02/25/17 14:16 Hx Obtained From: Patient ?: No Onset/Duration: Gradual Onset, Lasting Days, Still Present Timing: Intermittent Episode Lasting Severity Initially: Mild Severity Currently: Mild Character: Room Spinning Aggravating Factor(s): Position Change Alleviating Factor(s): Rest Associated Signs And Symptoms: Positive: Nausea - Allergies/Home Medications Allergies/Adverse Reactions: Allergies Allergy/AdvReac Type Severity Reaction Status Date / Time Latex Allergy Severe Rash Verified 09/11/16 07:47 Peanut-containing Drug Allergy Severe gi and Verified 09/11/16 07:47 Products vomiting Hydrochlorothiazide Allergy Intermediate rash, Verified 09/11/16 07:47 itching Metoprolol Allergy Intermediate Rash, Verified 09/11/16 07:47 itching PMH/Surg Hx/FS Hx/Imm Hx Previously Healthy: No Endocrine History: Diabetes Cardiovascular History: Hypertension - Surgical History Surgical History: Yes Surgery Procedure, Year, and Place: left knee replacement 5weeks ago - Family History Known Family History: Positive: Hypertension - Social History Occupation: Unemployed Lives: With Family Alcohol Use: None Substance Use Type: None Smoking Status (MU): Never Smoked Tobacco - Immunization History Most Recent Influenza Vaccination: 2016 Most Recent Tetanus Shot: up to date Most Recent Pneumonia Vaccination: none Review of Systems Constitutional: Negative Skin: Negative Eyes: Negative, Other ENT: Negative Respiratory: Negative Cardiovascular: Negative Gastrointestinal: Negative Genitourinary: Negative Motor: Negative Neurovascular: Negative, Other Musculoskeletal: Negative Neurological: Negative Psychological: Negative All Other Systems Reviewed And Are Negative: Yes Physical Exam Triage Information Reviewed: Yes Appearance: Well-Appearing, No Pain Distress, Well-Nourished Vital Signs: Initial Vital Signs Temp 98 F 02/25/17 13:32 Pulse 78 02/25/17 13:32 Resp 18 02/25/17 13:32 BP 154/71 02/25/17 13:32 Pulse Ox 99 02/25/17 13:32 Vital Signs Reviewed: Yes Eye Exam: Normal Eyes: Positive: Conjunctiva Clear, Other: - Perrla, eomi ENT Exam: Normal ENT: Positive: Normal ENT inspection, Hearing grossly normal, Pharynx normal, TMs normal. Negative: Nasal congestion, Nasal drainage, Tonsillar swelling, Tonsillar exudate, Trismus, Muffled/hoarse voice Dental Exam: Normal Dental: Positive: Percussion Tenderness @, Gross Decay/Caries @ Neck exam: Normal Neck: Positive: Supple, Nontender, No Lymphadenopathy Respiratory Exam: Normal Respiratory: Positive: Chest non-tender, Lungs clear, Normal breath sounds, No respiratory distress, No accessory muscle use Cardiovascular Exam: Normal Cardiovascular: Positive: RRR, No Murmur, Pulses Normal, Brisk Capillary Refill Musculoskeletal Exam: Normal Musculoskeletal: Positive: Strength Intact, ROM Intact, No Edema Neurological Exam: Normal Neurological: Positive: Alert, Muscle Tone Normal, Other: - rhomberg (-), no pronator drift, finger to nose wnl Psychological Exam: Normal Skin Exam: Normal Diagnostics - Laboratory Diagnostic Studies Completed/Ordered: UA wnl x +1 blood, glucose 99 - EKG Cardiac Rate: NL Cardiac Rhythm: Sinus: Normal Ectopy: None ST Segment: Normal Re-Evaluation - Re-Evaluation First Eval Change: Improved - symptoms resolved after meclizine Dizzy Course/Dx - Course Course Of Treatment: Meclizine zofran, decongestant, follow with pcp - Differential Dx/Diagnosis Differential Diagnosis/HQI/PQRI: Benign Paroxysmal Positional Vertigo, Labyrinthitis, Meniere's Disease, Transient Ischemic Attack, Vasovagal Reaction Provider Diagnoses: BPPV Discharge - Discharge Plan Condition: Stable Disposition: HOME Prescriptions: Meclizine TAB* [Antivert 12.5 TAB*] 25 mg PO TID PRN #21 tab PRN Reason: Vertigo Ondansetron ODT TAB* [Zofran 4 MG Odt TAB*] 4 mg PO Q8H PRN #6 tab.odt PRN Reason: Nausea/Vomiting Patient Education Materials: Vertigo (ED) Referrals: Mauricio Ortiz MD [Primary Care Provider] - 3 Days
[2017-02-25 14:41] VITALS: BP 139/86
[2017-02-25] MEDS ORDERED: Ondansetron ODT TAB* 4 MG PO ONE (15:03)
== END 2017-02-25 15:27 | disposition home or self-care (01) ==
LOC: UCEAST 13:21
DX: H81.10 Benign paroxysmal vertigo, unspecified ear (principal); R11.0 Nausea; E11.9 Type 2 diabetes mellitus without complications; I10 Essential (primary) hypertension; Z96.652 Presence of left artificial knee joint
CPT/HCPCS: 81003; 93005; 99213; A9270-GY; G0463

== ENCOUNTER 2017-09-16 06:07 | Day surgery (SDC) | payer BC ==
--- NOTE | 2017-09-04 08:42 | HP ---
CC: Dr. Bolanos; Dr. Mauricio Ortiz; Dr. Pete* PREOPERATIVE HISTORY AND PHYSICAL: DATE OF ADMISSION: 09/16/17 This patient is scheduled for same-day surgery admission by Dr. Bolanos on Saturday , 09/16/17. ATTENDING SURGEON: Rama Bolanos MD* (dictated by Chio Green NP). CHIEF COMPLAINT: Thyrotoxicosis. HISTORY OF PRESENT ILLNESS: The patient is a 61-year-old female, referred to Dr. Bolanos by Dr. Pete for evaluation of thyrotoxicosis. The patient reports that over the past year she has been aware of a nodule on the thyroid gland. This was identified by Dr. Ortiz when she was being worked up for a left knee replacement that she ultimately had in August 2016. Initially, her thyroid numbers were somewhat abnormal, but in April 2017, apparently the numbers were worse and she complained of feeling discomfort in the thyroid gland. She also complains of fatigue. She denies other symptoms such as difficulty breathing, difficulty swallowing, or hoarseness. She has never had radiation to the head and neck area. She does have a family history of thyroid disease in one of her sisters who also has hyperthyroidism. The patient underwent ultrasound of the thyroid gland, which revealed a dominant nodule in the left lobe; there was also a spongiform type nodule on the right side of the thyroid and fine needle aspiration revealed benign tissue. The patient has been advised by Dr. Pete to discuss surgical options with Dr. Bolanos. Dr. Bolanos has examined the patient and has recommended left hemithyroidectomy as a same day surgery procedure. Dr. Bolanos discussed the nature of the surgical procedure, the rationale for the procedure, the relevant risks and benefits, and today I reviewed the typical postoperative care and recovery. The patient has had a chance to ask questions and stated that she understands the information and is satisfied with the answers given to her questions. She will sign surgical consent on the day of surgery. PAST MEDICAL HISTORY: 1. Type 2 diabetes. 2. Hypertension. 3. Overactive bladder and allergies. PAST SURGICAL HISTORY: Left knee replacement in August 2016. MEDICATIONS: 1. Amlodipine 10 mg p.o. daily. 2. Metformin 500 mg p.o. b.i.d., and she will hold metformin on the day before surgery and the morning of surgery. 3. Osteo Bi-Flex regular strength p.o. daily. 4. Tolterodine 4 mg p.o. daily. 5. Latanoprost 0.005% eye drops as directed. 6. Lisinopril 40 mg p.o. daily. 7. Timolol eyedrops 0.5% as directed. 8. Zyrtec 10 mg p.o. daily. 9. Medroxyprogesterone 10 mg 10 days out of the month. 10. Methimazole 10 mg p.o. daily. ALLERGIES: HYDROCHLOROTHIAZIDE and METOPROLOL both caused rash. She is also allergic to PEANUTS, LATEX, DUST, and MOULD. PENICILLIN causes hives; HYDROCODONE causes itchiness and vomiting. FAMILY HISTORY: His father had a history of colon cancer, mother with a history of hypertension, and one of her sisters is hyperthyroid. No known anesthesia complications, bleeding tendencies or clotting disorders. 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 REVIEW OF SYSTEMS: Constitutional: No fevers, chills, or weight loss; she has felt increasingly fatigued over the past several months. Endocrine: She is a type 2 diabetic. She does not routinely check fingersticks; she has thyrotoxicosis as described in history of present illness. Hematologic: No easy bruising or bleeding. She is not sure if she received a blood transfusion at the time of her left knee replacement. Respiratory: No dyspnea on exertion. No chronic cough. Cardiovascular: No anginal chest pain or palpitations. Gastrointestinal: No nausea, vomiting, diarrhea, GI bleeding or constipation. Genitourinary: No dysuria. Musculoskeletal: No problems with joint or back pain. Skin: Changes of venous stasis on the left lower extremity and her skin is dry. Neurologic: No headache, blurred vision, areas of focal weakness or numbness. General: No previous anesthesia complications. No history of deep vein thrombosis or pulmonary embolism. PHYSICAL EXAMINATION GENERAL SURVEY: The patient is a 61-year-old female, obese, well developed, in no acute distress. VITAL SIGNS: Height 66.5 inches, weight 240 pounds, body mass index 38.2. Blood pressure 152/96, pulse 80 and regular, respiratory rate 16, temperature 97.1 tympanic. HEENT: Benign. NECK: Supple; there is a visible nodule in the anterior let neck. There is no palpable cervical or supraclavicular lymphadenopathy; the left side of the thyroid has nodule and enlarged; there was no palpable nodule in the right side , which has been biopsied and found to be benign. LUNGS: Breath sounds bilaterally clear and equal. HEART: Regular rate and rhythm. No murmurs or rubs appreciated. ABDOMEN: Active bowel sounds, obese, soft. Nondistended. Nontender throughout. No obvious masses, organomegaly or evidence of ventral hernia. No skin fold rashes. BACK: No CVA tenderness. EXTREMITIES: Warm. There is mild edema of the lower extremities. No skin ulcerations. Venous stasis noted left lower extremity and her skin is dry. PELVIC: Deferred. RECTAL: Deferred. NEUROLOGIC: Alert and oriented x3. Steady gait. SKIN: Warm, dry, intact. Changes of venous stasis over the left lower extremity. No ulcerations. 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 PLAN: Same-day surgery admission to Dr. Bolanos's service on 09/16/17, for left hemithyroidectomy. TYLER GREEN, MEDICAL SERVICES MANAGER [id number]/[facility] #: [id number] JAYA
[~2017-09-16 06:07] MED LIST changes: +Buffered Lidocaine 0.9% SYRIN* 5 ML/SYR SYRINGE INTRADERM ONE; -Buffered Lidocaine 1% SYRIN* 3 ML/SYR SYRINGE INTRADERM ONE; +Dexamethasone IV* 4 MG/ML 1 ML (4 MG) IV SLOW PU ONE; +Famotidine IV* 10 MG/ML 2 ML (20 mg) IV ONE
[2017-09-16] MEDS ORDERED: Scopolamine 1.5 mg* PATCH ONE (06:58)
[2017-09-16] MEDS ORDERED: Famotidine IV* 10 MG/ML 2 ML (20 mg) ONE (06:58)
[2017-09-16] MEDS ORDERED: Dexamethasone IV* 4 MG/ML 1 ML (4 MG) ONE (06:58)
[2017-09-16] MEDS ORDERED: Heparin VIAL(*) 5000 UNITS/ML VIAL (FIVE THOUSAND) ONE (06:58)
[2017-09-16] MEDS ORDERED: Buffered Lidocaine 0.9% SYRIN* 5 ML/SYR SYRINGE ONE (06:59)
[2017-09-16] MEDS ORDERED: ceFAZolin 2 GM PREMIX (*) 2 GM/50 ML BAG IVPB ONE (06:59)
[2017-09-16] MEDS ORDERED: Scopolamine 1.5 mg* PATCH TRANSDERM SCH (07:00)
[2017-09-16] MEDS ORDERED: Bupivacaine 0.25% SDV* 30 ML ONE (07:06)
[2017-09-16] MEDS ORDERED: Atracurium* 10 MG/ML 10 ML VIAL ONE (07:13)
[2017-09-16] MEDS ORDERED: fentaNYL* 50 MCG/ML 5 ML VIAL (250 MCG VIAL) ONE (07:14)
[2017-09-16] MEDS ORDERED: Midazolam* 1 MG/ML 5 ML VIAL (5 MG) ONE (07:14)
[2017-09-16] MEDS ORDERED: Lidocaine 2% PF * 5 ML VIAL ONE (07:17)
[2017-09-16] MEDS ORDERED: Ondansetron INJ* 2 MG/ML VIAL ONE (07:17)
[2017-09-16] MEDS ORDERED: Propofol* 10 MG/ML 20 ML BTL IV PUSH ONE (07:17)
[2017-09-16] MEDS ORDERED: EPHEDrine (Pressors)* 50 MG/ML VIAL ONE (07:56)
[2017-09-16] MEDS ORDERED: Ondansetron INJ* 2 MG/ML VIAL IV PRN (08:15)
[2017-09-16] MEDS ORDERED: fentaNYL* 50 MCG/ML 2 ML VIAL (100 MCG VIAL) IV PRN (08:15)
[2017-09-16] MEDS ORDERED: oxyCODONE/Acetamin 5/325 MG* TAB PO PRN (08:15)
[2017-09-16] MEDS ORDERED: DiMENhydriNATE IV* 50 MG/ML VIAL IV PUSH PRN (08:15)
[2017-09-16] MEDS ORDERED: HYDROmorphone INJ* 1 MG/ML CARPUJECT SYRINGE IV PRN (08:15)
[2017-09-16] MEDS ORDERED: Naloxone* 0.4 MG/ML 1 ML VIAL IV PRN (08:15)
--- NOTE | 2017-09-16 09:41 | OP ---
Operative Report - Blank - Operative Report Date of Operation: 09/16/17 Note: Pre-op: Left thyroid nodule Post-op: Same Procedure: Left hemithyroidectomy Surgeon: Thomas Bolanos Embedded Firmware Engineer: NELLY Diallo Anesthesia: GETA Fluids: LR 1,500 cc Catheter: None Drains: None EBL: Minimal Specimen: Left thyroid gland Findings: See dictated op note
[2017-09-16] MEDS ORDERED: Ketorolac INJ* 30 MG/ML 1 ML VIAL ONE (10:14)
[2017-09-16] MEDS ORDERED: Ketorolac INJ* 15 MG/ML 1 ML VIAL IV PUSH ONE (10:14)
[2017-09-16 12:06] VITALS: BP 154/76
--- NOTE | 2017-09-16 13:09 | OP ---
CC: Dr. Juan Carlos Pete; Dr. Mauricio Ortiz * DATE OF OPERATION: 09/16/17 - [facility] DATE OF : 57 SURGEON: Rama Bolanos MD. MACHINE FITTER: NELLY Salinas. PRE-OP DIAGNOSIS: Left thyroid nodule. POST-OP DIAGNOSIS: Left thyroid nodule. OPERATIVE PROCEDURE: Left hemithyroidectomy. INDICATIONS: Ms. Lennon is a 61-year-old woman who has had a thyroid nodule on the left side that has been increasing over time, now causing symptoms, prompting the plan for surgical intervention. DESCRIPTION OF PROCEDURE: She was brought to the operating room, placed on the OR table in supine position and given general anesthesia. The neck was prepped and draped in the usual sterile fashion. After infiltrating with local anesthetic, an incision was made along the line that had been marked preoperatively. Subcutaneous tissue was divided with electrocautery through the platysma muscle. Flaps were then developed superiorly to the thyroid notch and inferiorly to the sternal notch. The strap muscles were divided along the midline and retracted laterally over the left lobe of the thyroid gland. This was noted to be quite enlarged and the incision was extended slightly to accommodate the large nodule. Dissection was began in the superior pole on the medial aspect. Individual vessels that were identified were divided between LigaSure and clipped until the upper pole is free. Attention was then turned to the lower pole where Liga-Sure was used to divide vessels. The middle portion of the gland was then exposed. The gland was elevated anteriorly and medially and dissection in the middle portion of the gland was done here. It was noted that a structure consistent with a parathyroid gland was densely adherent to the thyroid gland. This was carefully dissected free and noted to be viable through the case. A second parathyroid was noted inferiorly. The recurrent laryngeal nerve was identified and preserved through the case. Once the gland was mobilized, it was elevated off the trachea and dissection through the trachea was accomplished using electrocautery. It was divided at the distal end of the isthmus using a suture LigaSure. It was handed as a specimen. The wound was inspected for hemostasis, which was achieved with combination of cautery and clips, and once this appeared adequate, some Surgicel was placed into the thyroid bed and then closure was accomplished. 3-0 Polysorb was used to reapproximate the strap muscles, and the platysma muscle was reapproximated with 4-0 Vicryl, and the skin was closed with 4-0 Prolene in a subcuticular fashion. Steri-Strips and a dry fluffy dressing were applied. All sponge and instrument counts were correct. The patient tolerated the procedure well and was transferred to Recovery in stable condition. [id number]/[facility] #: [id number] MTDD
== END 2017-09-16 12:06 | disposition home or self-care (01) ==
LOC: OR 06:07
PROVIDERS: ATTEND Surgery
DX: E05.10 Thyrotoxicosis with toxic single thyroid nodule without thyrotoxic crisis or storm (principal); E11.9 Type 2 diabetes mellitus without complications; Z79.84 Long term (current) use of oral hypoglycemic drugs; I10 Essential (primary) hypertension; J45.909 Unspecified asthma, uncomplicated; M19.90 Unspecified osteoarthritis, unspecified site
CPT/HCPCS: 88307; A9270-GY; J0690; J1100; J1644; J1885; J2250; J2405; J2704; J3010

== ENCOUNTER 2018-06-11 18:33 | Emergency (ER) | payer BC ==
[2018-06-11 18:46] VITALS: BP 156/94
--- NOTE | 2018-06-11 19:37 | UC ---
Skin Complaint HPI - HPI Summary HPI Summary: 62-year-old female with history of type 2 diabetes presents with progressively worsening redness swelling and tenderness to her right lower leg. States 2 days ago noticed a small tender red spot on her right medial lower leg. Over the past 2 days the redness is progressively spread and become more painful. Denies fever, chills, drainage, calf pain, chest pain, or shortness of breath. - History of Current Complaint Chief Complaint: UCSkin Time Seen by Provider: 06/11/18 19:28 Stated Complaint: SKIN COMPLAINT Hx Obtained From: Patient Hx Last Menstrual Period: na Pain Intensity: 4 - Allergy/Home Medications Allergies/Adverse Reactions: Allergies Allergy/AdvReac Type Severity Reaction Status Date / Time hydrochlorothiazide Allergy rash, Verified 06/11/18 20:04 itching latex Allergy Rash Verified 06/11/18 20:04 metoprolol Allergy rash, Verified 06/11/18 20:04 itching peanut Allergy sharp Verified 06/11/18 20:04 abdominal pain Home Medications: Home Medications Latanoprost/Pf [Latanoprost 0.005% Eye Drop] 7.5 ml OP BEDTIME 06/11/18 [ History Confirmed 06/11/18] PMH/Surg Hx/FS Hx/Imm Hx - Additional Past Medical History Additional PMH: Glaucoma Previously Healthy: Yes Endocrine History: Diabetes, Thyroid Disease Cardiovascular History: Hypertension Respiratory History: Asthma - Surgical History Surgical History: Yes Surgery Procedure, Year, and Place: left knee replacement. partial throidectomy - Family History Known Family History: Positive: Hypertension - Social History Occupation: Employed Full-time Lives: Alone Alcohol Use: Rare Substance Use Type: None Smoking Status (MU): Never Smoked Tobacco - Immunization History Most Recent Influenza Vaccination: 2016 Most Recent Tetanus Shot: up to date Most Recent Pneumonia Vaccination: none Review of Systems All Other Systems Reviewed And Are Negative: Yes Constitutional: Negative: Fever, Chills Skin: Positive: Other - See HPI Respiratory: Negative: Shortness Of Breath, Cough Cardiovascular: Negative: Palpitations, Chest Pain Motor: Negative: Decreased ROM, Weakness Neurovascular: Negative: Decreased Sensation Musculoskeletal: Negative: Arthralgia, Calf Tenderness Is Patient Immunocompromised?: No Physical Exam - Summary Physical Exam Summary: GENERAL APPEARANCE: Well developed, obese female who is alert, cooperative, and appears to be in no acute distress. CARDIAC: Normal S1 and S2. No S3, S4 or murmurs. Rhythm is regular. Extremities are warm and well perfused. Capillary refill is less than 2 seconds. Peripheral pulses intact. LUNGS: Clear to auscultation and percussion without rales, rhonchi, wheezing or diminished breath sounds. ABDOMEN: Positive bowel sounds. Soft, nondistended, nontender. No guarding or rebound. No masses or hepatosplenomegally. MUSKULOSKELETAL: ROM intact to all extremities. No joint erythema or tenderness. Normal muscular development. Normal gait. Calves supple. SKIN: There is a 16 cm x 6 cm area of erythema to the medial aspect of her lower right leg with increased warmth and induration present. There is a central darkened area measuring 3.5 cm x 2 cm. No fluctuation is noted. Triage Information Reviewed: Yes Vital Signs: Initial Vital Signs Temp 101.1 F 06/11/18 18:41 Pulse 115 06/11/18 18:41 Resp 20 06/11/18 18:41 BP 156/94 06/11/18 18:41 Pulse Ox 98 06/11/18 18:41 Vital Signs Reviewed: Yes Course/Dx - Course Course Of Treatment: 62-year-old female with history of type 2 diabetes presents with progressively worsening redness swelling and tenderness to her right lower leg. States 2 days ago noticed a small tender red spot on her right medial lower leg. Over the past 2 days the redness is progressively spread and become more painful. Denies fever, chills, drainage, calf pain, chest pain, or shortness of breath. At triage she was febrile with a temp of 101.1 F and mildly tachycardic at a rate of 115. Other vital signs were stable. Exam revealed a 16 cm x 6 cm area of erythema to the medial aspect of her lower right leg with erythema and induration present. There is a central darkened area measuring 3.5 cm x 2 cm. No fluctuation is noted. Remaining exam was unremarkable. With the high fever with cellulitis recommending that she see evaluated in the ER at this time as she may require IV antibiotics. - Differential Diagnoses - Skin Complaint Differential Diagnoses: Abscess, Cellulitis, MRSA, Systemic Illness - Diagnoses Provider Diagnosis: Cellulitis of right lower leg Discharge - Sign-Out/Discharge Documenting (check all that apply): Patient Departure All imaging exams completed and their final reports reviewed: No Studies - Discharge Plan Condition: Stable Disposition: HOME-RECOMMEND TO ED Patient Education Materials: Cellulitis (ED) Referrals: Mauricio Ortiz MD [Primary Care Provider] - Additional Instructions: With the progressively worsening skin infection and fever I am recommending that you be evaluated in the emergency room at this time. Please go directly to the emergency room from here. - Billing Disposition and Condition Condition: STABLE Disposition: Home-Recommend to ED - Attestation Statements Provider Attestation: Per institutional requirements, I have reviewed the chart, however, I was not consulted specifically or made aware of this patient by the midlevel provider. I did not personally evaluate, interact with , or disposition this patient.
== END 2018-06-11 19:48 | disposition home health service (06) ==
LOC: UCEAST 18:33
DX: L03.115 Cellulitis of right lower limb (principal); E11.9 Type 2 diabetes mellitus without complications; Z88.8 Allergy status to other drugs, medicaments and biological substances
CPT/HCPCS: 99212; G0463

== ENCOUNTER 2018-06-11 20:02 | Inpatient (IN) | payer BC ==
[2018-06-11] MEDS ORDERED: Ibuprofen TAB* 800 MG PO ONE (20:29)
[2018-06-11] MEDS ORDERED: Vancomycin(*) 1,250 MG in NS 0.9% 250 ML* 250 ML IVPB ONE (20:30)
--- NOTE | 2018-06-11 20:32 | ED ---
Skin Complaint - HPI Summary HPI Summary: Patient is a 62 y/o F presenting to ED with complaints of right medial lower leg area that is reported to be red, swollen, and open. Patient states that Sx onset two days ago as a "tiny spot" and enlarged yesterday. No drainage is reported. Area was squishy and hot to touch. Patient denies other Sx until this afternoon when she began to experience chills and fever. Patient is unsure how Sx onset. She was seen at [facility] care, patient was sent to ED. PMHx of diabetes, on metoformin. She states that she does not check sugars, goes to doctors "often" to have them checked. Erythema of eyes, sore throat, chest pain, SOB, cough, abdominal pain, N/V, dysuria, hematuria, myalgia, edema and dizziness are not reported. On triage, pain is rated 1/10, nothing is noted to aggravate/alleviate Sx. Home medications and allergies are reviewed. - History of Current Complaint Chief Complaint: EDRashSkinAbscess Time Seen by Provider: 06/11/18 20:17 Stated Complaint: POSS INFECTION Hx Obtained From: Patient Hx Last Menstrual Period: na Onset/Duration: Started Days Ago - two, Still Present, Worse Since Skin Exposure Onset/Duration: Days Ago - two Timing: Constant, Lasting Days - two Current Severity: Mild Pain Intensity: 1 Pain Scale Used: 0-10 Numeric - 1/10 Skin Location: Discrete, Leg - right medial lower leg Character: Redness Aggravating Symptom(s): Nothing Alleviating Symptom(s): Nothing Associated Signs & Symptoms: Fever, Chills - Additional Pertinent History Primary Care Physician: BREANNE - Allergy/Home Medications Allergies/Adverse Reactions: Allergies Allergy/AdvReac Type Severity Reaction Status Date / Time hydrochlorothiazide Allergy rash, Verified 06/11/18 20:04 itching latex Allergy Rash Verified 06/11/18 20:04 metoprolol Allergy rash, Verified 06/11/18 20:04 itching peanut Allergy sharp Verified 06/11/18 20:04 abdominal pain PMH/Surg Hx/FS Hx/Imm Hx Endocrine/Hematology History: Reports: Hx Diabetes, Hx Thyroid Disease - 1/2 removed Denies: Hx Anemia Cardiovascular History: Reports: Hx Hypertension Respiratory History: Reports: Hx Asthma - ALLERGY INDUCED Denies: Hx Chronic Obstructive Pulmonary Disease (COPD) GI History: Denies: Hx Jaundice, Hx Ulcer Musculoskeletal History: Reports: Hx Arthritis Sensory History: Reports: Hx Glaucoma - "BORDELINE" PER PATIENT Denies: Hx Contacts or Glasses, Hx Hearing Aid Opthamlomology History: Reports: Hx Glaucoma - "BORDELINE" PER PATIENT Denies: Hx Contacts or Glasses - Cancer History Hx Chemotherapy: No Hx Radiation Therapy: No - Surgical History Surgery Procedure, Year, and Place: left knee replacement. partial throidectomy Hx Anesthesia Reactions: No Infectious Disease History: No Infectious Disease History: Denies: Hx Clostridium Difficile, Hx Hepatitis, Hx Human Immunodeficiency Virus (HIV), Hx of Known/Suspected MRSA, Hx Shingles, Hx Tuberculosis, Hx Known/ Suspected VRE, Hx Known/Suspected VRSA, History Other Infectious Disease, Traveled Outside the [place] in Last 30 Days - Family History Known Family History: Positive: Hypertension - Social History Alcohol Use: Rare Substance Use Type: Reports: None Smoking Status (MU): Never Smoked Tobacco Review of Systems Positive: Fever, Chills Negative: Erythema Negative: Sore Throat Negative: Chest Pain Negative: Shortness Of Breath, Cough Negative: Abdominal Pain, Vomiting, Nausea Negative: dysuria, hematuria Negative: Myalgia, Edema Positive: Other - area that is reported to be red, swollen, and open; no drainage; area is reported to be squishy and hot to touch Neurological: Other - NEGATIVE - DIZZINESS All Other Systems Reviewed And Are Negative: Yes Physical Exam - Summary Physical Exam Summary: Constitutional: Well-developed, Well-nourished, Alert. (-) Distressed Skin: Warm, Dry; Right medial lower leg area that is mildly indurated, 2 cm by 10 cm, with core area that is hyper pigmented. No lymphangitis. HENT: Normocephalic; Atraumatic Eyes: Conjunctiva normal Neck: Musculoskeletal ROM normal neck. (-) JVD, (-) Stridor, (-) Tracheal deviation Cardio: Rhythm regular, rate normal, Heart sounds normal; Intact distal pulses; The pedal pulses are 2+ and symmetric. Radial pulses are 2+ and symmetric. (-) Murmur Pulmonary/Chest wall: Effort normal. (-) Respiratory distress, (-) Wheezes, (-) Rales Abd: Soft, (-) epigastric tenderness, (-) Distension, (-) Guarding, (-) Rebound Musculoskeletal: (-) Edema Lymph: (-) Cervical adenopathy Neuro: Alert, Oriented x3 Psych: Mood and affect Normal Triage Information Reviewed: Yes Vital Signs On Initial Exam: Initial Vitals Temp Pulse Resp BP Pulse Ox 99.0 F 104 18 155/86 95 06/11/18 20:03 06/11/18 20:03 06/11/18 20:03 06/11/18 20:03 06/11/18 20:03 Vital Signs Reviewed: Yes Diagnostics - Vital Signs Vital Signs Temp Pulse Resp BP Pulse Ox 06/11/18 20:03 99.0 F 104 18 155/86 95 - Laboratory Lab Statement: Any lab studies that have been ordered have been reviewed, and results considered in the medical decision making process. - EKG 2100 Cardiac Rate: NL - RATE OF 91 BPM EKG Rhythm: Sinus Rhythm Summary of EKG Findings: EKG showed sinus rhythm with rate of 93 BPM, no STEMI. Course/Dx - Course Assessment/Plan: Patient is a 62 y/o F presenting to ED with complaints of right medial lower leg area that is reported to be red, swollen, and open. Patient states that Sx onset two days ago as a "tiny spot" and enlarged yesterday. No drainage is reported. Area was squishy and hot to touch. Patient denies other Sx until this afternoon when she began to experience chills and fever. Patient is unsure how Sx onset. [facility], patient was sent to ED. PMHx of diabetes, on metoformin. She states that she does not check sugars, goes to doctors "often" to have them checked. On physical exam, right medial lower leg area that is mildly indurated, 2 cm by 10 cm, with core area that is hyper pigmented. No lymphangitis. Labs showed WBC 18.4, MPV 7.3, absolute neuts 14.1, absolute monos 1.4, INR 1.14, glucose 128, lactic acid was 0.8, trop 0. During ED course, patient received Motrin 800 mg PO ED ONCE ONE. She was started on fluids and vancomycin, 250 mls @ 166.667 mls/hr. EKG showed sinus rhythm with rate of 93 BPM, no STEMI. Patient's case was discussed with Dr. Rincon at 2055. Dr. Rincon accepts patient for admission. Patient is agreeable with admission. - Diagnoses Provider Diagnoses: Sepsis, Cellulitis of right lower leg - Physician Notifications Discussed Care Of Patient With: Jonna Rincon Time Discussed With Above Provider: 20:56 Instructed by Provider To: Other - Patient's case was discussed with Dr. Rincon at 2055. Dr. Rincon accepts patient for admission. Discharge - Sign-Out/Discharge Documenting (check all that apply): Patient Departure - admit - Discharge Plan Condition: Good Disposition: ADMITTED TO [facility] Referrals: Mauricio Ortiz MD [Primary Care Provider] - - Attestation Statements Document Initiated by Scribe: Yes Documenting Scribe: STACY RIVERA Provider For Whom Scribe is Documenting (Include Credential): GENEVIEVE KENNEDY MD Scribe Attestation: STACY Villa , scribed for GENEVIEVE KENNEDY MD on 06/11/18 at 3490. Status of Scribe Document: Ready
[2018-06-11] MEDS: NS 0.9% 1000 ML* 3,500 ML IV ONE ×2 (20:48→22:25)
[2018-06-11 20:55] LABS: ABS Basophils 0.1 10^3/ul (0-0.2); ABS Eosinophils 0.2 10^3/ul (0-0.6); ABS Lymphocytes 2.5 10^3/ul (1.0-4.8); ABS Monocytes 1.4 10^3/ul (0-0.8); ABS Neutrophils 14.1 10^3/ul (1.5-7.7); ABS Nucleated RBC 0 10^3/ul; Eosinophil % 1.3 %; Hematocrit 41 % (35-47); Hemoglobin 13.4 g/dl (12.0-16.0); Lymphocyte % 13.8 %; Mean Corpuscular HGB Conc 33 g/dl (31-36); Mean Corpuscular Hemoglobin 28 pg (27-31); Mean Corpuscular Volume 84 fL (80-97); Mean Platelet Volume 7.3 fL (7.4-10.4); Nucleated Red Blood Cells % 0; Platelet Count 307 10^3/ul (150-450); Red Blood Count 4.83 10^6/ul (4.00-5.40); Red Cell Distribution Width 15 % (10.5-15); White Blood Count 18.4 10^3/ul (3.5-10.8)
[2018-06-11 21:05] LABS: Activated Partial Thrombo Time 29.3 seconds (26.0-36.3); INR 1.14 (0.77-1.02)
[2018-06-11 21:11] LABS: Albumin 4.4 g/dL (3.2-5.2); Albumin/Globulin Ratio 1.5 (1-3); BUN/Creatinine Ratio 16.4 (8-20); Calcium 9.2 mg/dL (8.6-10.3); EGFR Non-African American 89.5 (>60); Potassium 3.8 mmol/L (3.5-5.0); Total Bilirubin 0.7 mg/dL (0.2-1.0); Total Protein 7.4 g/dL (6.4-8.9)
[2018-06-11] MEDS ORDERED: Docusate CAP* 100 MG PO PRN (22:13)
[2018-06-11] MEDS ORDERED: Acetaminophen TAB* 325 MG PO PRN (22:13)
[2018-06-11] MEDS ORDERED: Ondansetron INJ* 2 MG/ML VIAL IV PRN (22:13)
[2018-06-11] MEDS ORDERED: oxyCODONE/Acetamin 5/325 MG* TAB PO PRN (22:13)
[2018-06-11] MEDS ORDERED: Al Hydrox/Mg Hydrox/Simet LIQ* 30 ML UDC PO PRN (22:13)
[2018-06-11] MEDS ORDERED: Senna TAB PO PRN (22:13)
[2018-06-11 22:16] LABS: Urine Appearance Clear; Urine Bacteria Absent (Absent); Urine Bilirubin Negative (Negative); Urine Blood 2+ (Negative); Urine Color Yellow; Urine Glucose Negative (Negative); Urine Ketones Negative (Negative); Urine Nitrite Negative (Negative); Urine Protein Negative (Negative); Urine Red Blood Cell Trace(0-2/hpf) (Absent); Urine Specific Gravity 1.009 (1.010-1.030); Urine Urobilinogen Negative (Negative); Urine White Blood Cell Absent (Absent)
[2018-06-11] MEDS ORDERED: Albuterol HFA INHALER* 8 gm MDI INH PRN (22:16)
[2018-06-11] MEDS ORDERED: Dextrose 50% Syringe 50 ML* 25 GM/50 ML SYRINGE IV PUSH PRN (22:16)
[2018-06-11 22:55] LABS: TSH (Thyroid Stimulating Horm) 3.97 mcIU/mL (0.34-5.60)
[2018-06-11] MEDS ORDERED: Vancomycin per Pharmacy* NOTE FOLLOW UP SCH (23:00)
[2018-06-11] MEDS ORDERED: Vancomycin(*) 0 MG in NS 0.9% 250 ML* 250 ML IVPB SCH (23:00)
[2018-06-12] MEDS: NS 0.9% 1000 ML* 1,000 ML IV SCH (01:18)
[2018-06-12] MEDS: Vancomycin(*) 1,250 MG in NS 0.9% 250 ML* 250 ML IVPB SCH ×3 (05:15→21:37)
[2018-06-12] MEDS: Heparin VIAL(*) 5000 UNITS/ML VIAL (FIVE THOUSAND) SUBCUT SCH ×3 (05:16→21:40)
--- NOTE | 2018-06-12 06:36 | HP ---
CC: Mauricio Ortiz MD * HISTORY AND PHYSICAL: DATE OF ADMISSION: 06/11/18 TIME OF EVALUATION: 2200 PRIMARY CARE PHYSICIAN: Mauricio Ortiz MD CHIEF COMPLAINT: Right lower extremity redness and swelling. HISTORY OF PRESENT ILLNESS: This is a 62-year-old female with a past medical history of diabetes and morbid obesity, who presents to the emergency room from urgent care for worsening right lower extremity redness and swelling. The patient states that around the evening of 06/09/18, she noticed a red dot on her right lower extremity. By morning, it was about the size of a quarter. She put some moisturizing cream on it. It seemed to get worse, more redness and swelling with a ring in the center area, but no pus or drainage. She was worried about the worsening appearance of it today, so she went to urgent care for further evaluation. Prior to urgent care, she did put drawing salve on it to try to bring out the drainage, but there was no purulent drainage at all. When she was seen in urgent care, they were concerned about her fever, diabetes , and the extent of her cellulitis and recommended she go to the emergency room for further evaluation. The patient states that she has had chills. No nausea, vomiting, diarrhea. No abdominal pain. No urinary symptoms. No chest pain or shortness of breath. No history of cellulitis in the past. She does not check her sugars, but she states that she has never had an issue with them being high. In the emergency room, the patient had labs. She was given ibuprofen and vancomycin and later referred to the hospitalist service for further evaluation. PAST MEDICAL HISTORY: 1. Diabetes. 2. Asthma. 3. Hypertension. 4. Glaucoma. PAST SURGICAL HISTORY: Partial thyroidectomy, left knee replacement. MEDICATIONS: 1. Metformin 1000 mg p.o. daily. 2. Provera 10 mg daily for 10 days, then off of it. 3. Nexium, not currently on it. 4. Zyrtec 10 mg daily. 5. Detrol LA 4 mg daily. 6. Timolol 1 drop both eyes in the morning. 7. Lisinopril 40 mg daily. 9. Glucosamine 2 tabs daily in the morning. 10. Amlodipine 10 mg daily. 11. Albuterol 2 puffs inhaled every 4 hours as needed. ALLERGIES: LATEX, HYDROCHLOROTHIAZIDE, METOPROLOL, and PEANUTS. FAMILY HISTORY: Father at age 89 from COPD. Mother at age 87 with Parkinson's. SOCIAL HISTORY: The patient lives at home. Her son lives with her. 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 No history of tobacco, alcohol, or illicit drug use. She has 2 grown daughters. Code status is full code. REVIEW OF SYSTEMS: A 14-point review of systems is as mentioned in the HPI, otherwise negative. PHYSICAL EXAMINATION GENERAL: No acute distress, resting comfortably. VITALS: T-max 101.2, pulse rate is 107, respiratory rate 18, oxygen saturation 95% on room air, blood pressure 155/86. HEENT: Head normocephalic. Pupils are equal and reactive. Conjunctivae mildly injected. Oropharynx: Mucous membranes are moist. NECK: Supple. No adenopathy. No nuchal rigidity. RESPIRATORY: Clear to auscultation. No wheeze, rhonchi, or rales. CARDIAC: Tachycardic, soft systolic murmur heard throughout. ABDOMEN: Soft, nontender, nondistended. EXTREMITIES: The patient with, right lower extremity, some minimal edema with 2 x 10 circular erythematous area with a central region that was more hyperpigmented, not necrotic. Good pulses. No purulent drainage. Mildly indurated. No fluctuance. NEUROLOGIC: She is alert and oriented x3. No gross focal neurologic deficits. LABORATORY DATA: White count is 18.4, hemoglobin 13.4, hematocrit 41, platelets 307. INR 1.14. Sodium 137, potassium 3.8, chloride 102, bicarb 25, BUN 11, creatinine 0.67, glucose 128. Troponin is 0. ASSESSMENT: This is a 62-year-old female with a past medical history of diabetes and morbid obesity who presents to the emergency room with 2 days of worsening right lower extremity redness and swelling. 1. Right lower extremity redness and swelling. The patient's findings are consistent with cellulitis. Due to her vitals and diabetes history it is not unreasonable to admit for IV antibiotics. P britton: We will admit her to [address] [place] [address], continue on vancomycin for now, but likely can transition to clindamycin. Follow up on her blood cultures. Continue her on IV fluids. No indication for imaging at this time as there does not appear to be an area that can be drained, but if no significant improvement, would recommend further imaging for possible I and D. 2. Past medical history of hypertension. Continue her amlodipine and lisinopril. 3. Diabetes. We will check her hemoglobin A1c and hold her metformin and place her on lispro sliding scale. 4. FEN: Diabetic diet with IV fluids. 5. DVT prophylaxis: The patient scores high risk. We will place her on heparin subcutaneous t.i.d. 6. Code status: Full code. PATIENT TIME: Greater than 45 minutes were spent doing the history and physical , more than half the time was spent in direct patient contact. [id number]/[facility] #: [id number] JAYA
[2018-06-12 07:13] LABS: ABS Basophils 0 10^3/ul (0-0.2); ABS Eosinophils 0.2 10^3/ul (0-0.6); ABS Lymphocytes 1.6 10^3/ul (1.0-4.8); ABS Monocytes 1.2 10^3/ul (0-0.8); ABS Neutrophils 8.3 10^3/ul (1.5-7.7); ABS Nucleated RBC 0 10^3/ul; Eosinophil % 1.8 %; Hematocrit 36 % (35-47); Hemoglobin 11.9 g/dl (12.0-16.0); Lymphocyte % 14.5 %; Mean Corpuscular HGB Conc 33 g/dl (31-36); Mean Corpuscular Hemoglobin 28 pg (27-31); Mean Corpuscular Volume 85 fL (80-97); Mean Platelet Volume 7.4 fL (7.4-10.4); Nucleated Red Blood Cells % 0; Platelet Count 253 10^3/ul (150-450); Red Blood Count 4.23 10^6/ul (4.00-5.40); Red Cell Distribution Width 15 % (10.5-15); White Blood Count 11.4 10^3/ul (3.5-10.8)
[2018-06-12 07:33] LABS: Calcium 8.3 mg/dL (8.6-10.3); EGFR Non-African American 114.8 (>60); Potassium 3.6 mmol/L (3.5-5.0)
[2018-06-12] MEDS: amLODIPine TAB* 5 MG PO SCH (08:29)
[2018-06-12] MEDS: Lisinopril TAB* 10 MG PO SCH (08:30)
[2018-06-12] MEDS: Timolol 0.5% OPTH.SOL* BTL BOTH EYES SCH (08:32)
[2018-06-12] MEDS: Oxybutynin XL TAB* 5 MG PO SCH (08:32)
[2018-06-12] MEDS: Insulin LISPRO* 1 UNITS UNIT SUBCUT SCH ×3 (08:59→17:11)
--- NOTE | 2018-06-12 14:27 | PN ---
Subjective Date of Service: 06/12/18 Interval History: Resting in bed with son at bedside. Reports mild pain in right lower leg near wound. Denies fever/chills, calf pain , numbness/tingling, cp, sob, n/v/d. Objective Active Medications: Acetaminophen (Tylenol Tab*) 650 mg PO Q4H PRN PRN Reason: FEVER/PAIN Al Hydrox/Mg Hydrox/Simethicone (Maalox Plus*) 30 ml PO Q6H PRN PRN Reason: INDIGESTION Albuterol (Ventolin Hfa Inhaler*) 2 puff INH Q4H PRN PRN Reason: SOB/WHEEZING Amlodipine Besylate (Norvasc Tab*) 10 mg PO DAILY REPLACED BY [facility] Last Admin: 06/12/18 08:29 Dose: 10 mg Dextrose (D50w Syringe 50 Ml*) 12.5 gm IV PUSH .FOR FS < 60 - SS PRN PRN Reason: FS < 60 Docusate Sodium (Colace Cap*) 100 mg PO BID PRN PRN Reason: CONSTIPATION Heparin Sodium (Porcine) (Heparin Vial(*)) 5,000 units SUBCUT Q8HR REPLACED BY [facility] Last Admin: 06/12/18 13:30 Dose: 5,000 units Sodium Chloride (Ns 0.9% 1000 Ml*) 1,000 mls @ 125 mls/hr IV PER RATE REPLACED BY [facility] Last Admin: 06/12/18 01:18 Dose: 125 mls/hr Vancomycin HCl 1,250 mg/ (Sodium Chloride) 250 mls @ 166.667 mls/hr IVPB Q8H REPLACED BY [facility] Last Admin: 06/12/18 13:27 Dose: 166.667 mls/hr Insulin Human Lispro (Humalog*) 0 units SUBCUT AC REPLACED BY [facility]; Protocol Last Admin: 06/12/18 12:26 Dose: Not Given Latanoprost (Xalatan 0.005%*) 1 drop .SEE ORDER BEDTIME REPLACED BY [facility] Lisinopril (Prinivil Tab*) 40 mg PO QAM REPLACED BY [facility] Last Admin: 06/12/18 08:30 Dose: 40 mg Ondansetron HCl (Zofran Inj*) 4 mg IV Q4H PRN PRN Reason: NAUSEA/VOMITING Oxybutynin Chloride (Ditropan Xl Tab*) 5 mg PO QAM REPLACED BY [facility]; Protocol Last Admin: 06/12/18 08:32 Dose: 5 mg Oxycodone/Acetaminophen (Percocet 5/325 Tab*) 1 tab PO Q4H PRN PRN Reason: Pain Pharmacy Consult (Vancomycin Per Pharmacy*) 1 note FOLLOW UP .VANC PER PHARMACY REPLACED BY [facility] Pharmacy Profile Note (Vancomycin Trough Check) 1 note FOLLOW UP .ENTER TIME ONE Stop: 06/12/18 20:31 Senna (Senokot Tab*) 1 tab PO BID PRN PRN Reason: CONSTIPATION Timolol Maleate (Timoptic 0.5% Opth*) 1 [facility] Last Admin: 06/12/18 08:32 Dose: 1 drop Vital Signs - 8 hr 06/12/18 06/12/18 06/12/18 07:30 08:00 11:29 Temperature 98.3 F 98.7 F Pulse Rate 82 81 Respiratory 18 18 18 Rate Blood Pressure 141/88 118/60 (mmHg) O2 Sat by Pulse 97 97 97 Oximetry Oxygen Devices in Use Now: None Appearance: Well Appearing, Comfortable, NAD Eyes: No Scleral Icterus Ears/Nose/Mouth/Throat: Clear Oropharnyx, Mucous Membranes Moist Neck: NL Appearance and Movements; NL JVP Respiratory: Symmetrical Chest Expansion and Respiratory Effort, Clear to Auscultation Cardiovascular: NL Sounds; No Murmurs; No JVD, RRR, No Edema Abdominal: NL Sounds; No Tenderness; No Distention Lymphatic: No Cervical Adenopathy Extremities: No Edema, No Clubbing, Cyanosis Skin: - - See attached imagines of wound to right lower leg on anterior and medial aspect. LLE wnl. Neurological: Alert and Oriented x 3 Nutrition: Taking PO's Result Diagrams: 06/12/18 06:48 06/12/18 06:48 Additional Lab and Data: Laboratory Results - last 24 hr 06/11/18 06/11/18 06/11/18 20:46 20:46 20:46 WBC 18.4 H RBC 4.83 Hgb 13.4 Hct 41 MCV 84 MCH 28 MCHC 33 RDW 15 Plt Count 307 MPV 7.3 L Neut % (Auto) 76.6 Lymph % (Auto) 13.8 Will % (Auto) 7.7 Eos % (Auto) 1.3 Baso % (Auto) 0.6 Absolute Neuts (auto) 14.1 H Absolute Lymphs (auto) 2.5 Absolute Monos (auto) 1.4 H Absolute Eos (auto) 0.2 Absolute Basos (auto) 0.1 Absolute Nucleated RBC 0 Nucleated RBC % 0 INR (Anticoag Therapy) 1.14 H APTT 29.3 Sodium 137 Potassium 3.8 Chloride 102 Carbon Dioxide 25 Anion Gap 10 BUN 11 Creatinine 0.67 Est GFR ( Amer) 108.3 Est GFR (Non-Af Amer) 89.5 BUN/Creatinine Ratio 16.4 Glucose 128 H POC Glucose (mg/dL) Hemoglobin A1c Lactic Acid Calcium 9.2 Total Bilirubin 0.70 AST 15 ALT 12 Alkaline Phosphatase 95 Troponin I 0.00 Total Protein 7.4 Albumin 4.4 Globulin 3.0 Albumin/Globulin Ratio 1.5 TSH 3.97 Urine Color Urine Appearance Urine pH Ur Specific [place] Urine Protein Urine Ketones Urine Blood Urine Nitrate Urine Bilirubin Urine Urobilinogen Ur Leukocyte Esterase Urine WBC (Auto) Urine RBC (Auto) Urine Bacteria Urine Glucose 06/11/18 06/11/18 06/11/18 20:46 20:46 20:54 WBC RBC Hgb Hct MCV MCH MCHC RDW Plt Count MPV Neut % (Auto) Lymph % (Auto) Will % (Auto) Eos % (Auto) Baso % (Auto) Absolute Neuts (auto) Absolute Lymphs (auto) Absolute Monos (auto) Absolute Eos (auto) Absolute Basos (auto) Absolute Nucleated RBC Nucleated RBC % INR (Anticoag Therapy) APTT Sodium Potassium Chloride Carbon Dioxide Anion Gap BUN Creatinine Est GFR ( Amer) Est GFR (Non-Af Amer) BUN/Creatinine Ratio Glucose POC Glucose (mg/dL) Hemoglobin A1c 5.8 H Lactic Acid 0.8 Calcium Total Bilirubin AST ALT Alkaline Phosphatase Troponin I Total Protein Albumin Globulin Albumin/Globulin Ratio TSH Urine Color Yellow Urine Appearance Clear Urine pH 6.0 Ur Specific [place] 1.009 L Urine Protein Negative Urine Ketones Negative Urine Blood 2+ A Urine Nitrate Negative Urine Bilirubin Negative Urine Urobilinogen Negative Ur Leukocyte Esterase Negative Urine WBC (Auto) Absent Urine RBC (Auto) Trace(0-2/hpf) Urine Bacteria Absent Urine Glucose Negative 06/12/18 06/12/18 06/12/18 06:48 06:48 07:36 WBC 11.4 H RBC 4.23 Hgb 11.9 L Hct 36 MCV 85 MCH 28 MCHC 33 RDW 15 Plt Count 253 MPV 7.4 Neut % (Auto) 72.8 Lymph % (Auto) 14.5 Will % (Auto) 10.6 Eos % (Auto) 1.8 Baso % (Auto) 0.3 Absolute Neuts (auto) 8.3 H Absolute Lymphs (auto) 1.6 Absolute Monos (auto) 1.2 H Absolute Eos (auto) 0.2 Absolute Basos (auto) 0 Absolute Nucleated RBC 0 Nucleated RBC % 0 INR (Anticoag Therapy) APTT Sodium 142 Potassium 3.6 Chloride 108 Carbon Dioxide 28 Anion Gap 6 BUN 7 Creatinine 0.54 Est GFR ( Amer) 138.9 Est GFR (Non-Af Amer) 114.8 BUN/Creatinine Ratio 13.0 Glucose 129 H POC Glucose (mg/dL) 127 H Hemoglobin A1c Lactic Acid Calcium 8.3 L Total Bilirubin AST ALT Alkaline Phosphatase Troponin I Total Protein Albumin Globulin Albumin/Globulin Ratio TSH Urine Color Urine Appearance Urine pH Ur Specific [place] Urine Protein Urine Ketones Urine Blood Urine Nitrate Urine Bilirubin Urine Urobilinogen Ur Leukocyte Esterase Urine WBC (Auto) Urine RBC (Auto) Urine Bacteria Urine Glucose Diagnostic Imaging: Assess/Plan/Problems-Billing Assessment: 62 yr old female with pmh of DM, obestiy, asthma, htn; who presented to the ED meeting sepsis criteria and with right lower leg cellulitis - Patient Problems (1) Cellulitis Comment: - Vanco per pharmacy protocol. - Improving - Transition to Clindamycin PO tomorrow (2) Sepsis Comment: - Met sepsis criteria on admission with Temp >100.4, HR > 90, RR >20 and WBC > 12. - Fluid bolus and abx given in ED. - Cultures obtained and waiting results - Cont IVF (3) Asthma Comment: - Without acute exacerbation - Cont Albuteral prn (4) Diabetes Comment: - Cont sliding scale - Cont holding Metformin - Patient refused insulin this morning - Educated on reason why we hold Metformin while in hospital and patient stated understanding. (5) Hypertension Comment: - Continue Amlodipine and Lisinopril (6) DVT prophylaxis Comment: - Sub Q Heparin Status and Disposition: Discharge home on oral antibiotics when medically stable. Attending: Vanessa Duarte
[2018-06-12] MEDS ORDERED: Vancomycin Trough Check NOTE FOLLOW UP ONE (20:30)
[2018-06-12] MEDS ORDERED: Latanoprost 0.005%* 2.5 ml BTL SCH (21:00)
[2018-06-13] MEDS: NS 0.9% 1000 ML* 1,000 ML IV SCH (02:34)
[2018-06-13] MEDS: Vancomycin(*) 1,250 MG in NS 0.9% 250 ML* 250 ML IVPB SCH (05:15)
[2018-06-13] MEDS: Heparin VIAL(*) 5000 UNITS/ML VIAL (FIVE THOUSAND) SUBCUT SCH (05:15)
[2018-06-13 07:08] LABS: ABS Basophils 0 10^3/ul (0-0.2); ABS Eosinophils 0.4 10^3/ul (0-0.6); ABS Lymphocytes 2.5 10^3/ul (1.0-4.8); ABS Monocytes 0.9 10^3/ul (0-0.8); ABS Neutrophils 4.8 10^3/ul (1.5-7.7); ABS Nucleated RBC 0 10^3/ul; Eosinophil % 4.2 %; Hematocrit 35 % (35-47); Hemoglobin 11.7 g/dl (12.0-16.0); Lymphocyte % 28.6 %; Mean Corpuscular HGB Conc 34 g/dl (31-36); Mean Corpuscular Hemoglobin 29 pg (27-31); Mean Corpuscular Volume 84 fL (80-97); Mean Platelet Volume 7.4 fL (7.4-10.4); Nucleated Red Blood Cells % 0; Platelet Count 233 10^3/ul (150-450); Red Blood Count 4.09 10^6/ul (4.00-5.40); Red Cell Distribution Width 15 % (10.5-15); White Blood Count 8.6 10^3/ul (3.5-10.8)
[2018-06-13 07:25] LABS: BUN/Creatinine Ratio 13.2 (8-20); Calcium 8.4 mg/dL (8.6-10.3); EGFR Non-African American 117.3 (>60); Potassium 3.4 mmol/L (3.5-5.0)
[2018-06-13] MEDS: Insulin LISPRO* 1 UNITS UNIT SUBCUT SCH (07:25)
[2018-06-13 07:26] VITALS: BP 129/63
[2018-06-13] MEDS: Timolol 0.5% OPTH.SOL* BTL BOTH EYES SCH (07:43)
[2018-06-13] MEDS: Oxybutynin XL TAB* 5 MG PO SCH (07:44)
[2018-06-13] MEDS: amLODIPine TAB* 5 MG PO SCH (07:44)
[2018-06-13] MEDS: Lisinopril TAB* 10 MG PO SCH (07:44)
[2018-06-13] MEDS ORDERED: Potassium Chlor TAB* 20 MEQ TAB.ER PO ONE (07:53)
--- NOTE | 2018-06-14 10:43 | DS ---
CC: Dr. Maruicio Ortiz * DISCHARGE SUMMARY: DATE OF ADMISSION: 06/11/18 DATE OF DISCHARGE: 06/13/18 PRIMARY CARE PROVIDER: Dr. Mauricio Ortiz. ATTENDING PHYSICIAN: Dr. Lujan * (dictated by Bhavani Garcia NP) PRIMARY DIAGNOSIS: Right lower extremity cellulitis. SECONDARY DIAGNOSES: 1. Diabetes. 2. Asthma. 3. Hypertension. 4. Glaucoma. CONSULTATIONS WHILE IN THE HOSPITAL: There are no consultations. PROCEDURES WHILE IN THE HOSPITAL: No procedures. STUDIES WHILE IN THE HOSPITAL: EKG: Impression: Sinus rhythm. DISCHARGE MEDICATIONS: New home medication: 1. Clindamycin 600 mg p.o. t.i.d. for 12 days. Continued home medications: 1. Metformin 1000 mg p.o. q. a.m. 2. Provera 10 mg p.o. daily. 3. Zyrtec 10 mg p.o. daily. 4. Detrol LA 4 mg p.o. q.a.m. 5. Timolol 0.5% 1 drop both eyes q.a.m. 6. Tapazole 10 mg p.o. b.i.d. 7. Lisinopril 40 mg p.o. q.a.m. 8. Latanoprost 0.005% 7.5 mL OP at bedtime. 9. Osteo Bi-Flex 2 each p.o. q. a.m. 10. Norvasc 10 mg p.o. q.a.m. 11. Albuterol 1 to 2 puffs inhalation q.4 hours p.r.n. Discontinued home medications: No home medications discontinued. HISTORY OF PRESENT ILLNESS/HOSPITAL COURSE: Ms. Lennon is a 62-year-old female with a past medical history of diabetes, asthma, hypertension; who presented to the emergency department on the evening of 06/11/18 from urgent care where she was initially evaluated for redness and swelling on her right lower extremity on the anterior and medial aspect. She reports that she initially noted a small red dot in this area on 06/09/18, but by the morning of 06/11/18, the redness and swelling had increased. She presented to urgent care and they were concerned about fever, diabetes, and the extent of her cellulitis, therefore she was recommended to come to the emergency room. Please see history and physical dictated by Dr. Jonna Rincon, for a complete summary of the events leading up to the hospitalization, but in short, the patient presented to the emergency room after being seen in urgent care. She met sepsis criteria as she had a white count of 18.4, she was tachycardic at 105 and temp noted to be 101.2. While in the emergency room, she received a fluid bolus and vancomycin. Our hospitalist team was consulted for admission and the patient was admitted to the medical floor. During the patient's admission, she received continued fluid hydration, IV hydration and IV vancomycin. Her blood cultures were followed and so far, there is no growth as of day 2. The patient's cellulitis was marked for monitoring and during her stay, the redness and swelling receded from previously marked line. In addition, the patient's white count normalized and today is 8.6. Ms. Lennon is stable for discharge to home. Vital signs are as follows: Temp 97.8, HR 71, RR 19, O2 saturation 94% on room air, BP 129/63. REVIEW OF SYSTEMS: The patient reports slight pain occasionally to her right anterior claudio where cellulitis is located. Denies chest pain, shortness of breath, fever/chills, nausea, vomiting, diarrhea, lightheadedness. A 14-point review of systems was completed and all others negative. PHYSICAL EXAM: General: Ms. Lennon is a well-developed, well-nourished 62-year- old female, sitting in the bed, appears in no acute distress, appears the patient's stated age. HEENT: EOMs intact. Sclerae within normal limits. Oropharynx is moist and free from exudate, lesions, redness. Neck: Supple. Full ROM. No lymphadenopathy. Respiratory: Lung sounds clear. Good aeration. No rales, rhonchi or wheezing. CV: S1, S2. Regular rate and rhythm. Abdomen: Soft, nontender, nondistended. Bowel sounds x4. Extremities : No clubbing or cyanosis. Right lower extremity on anterior and medial aspects has reddened area with small pustule in the center. Redness is receding from previously marked line. Left lower extremity is free from redness. Skin: Grossly intact besides above mentioned on right lower extremity. Neuro: Awake, alert, and oriented x4. Motor strength is 5/5 in upper and lower extremities bilaterally. Steady gait with no impairment. DISCHARGE PLAN/FOLLOWUP: Ms. Lennon will be discharged home and to follow up as follows: 1. Cellulitis: The patient has been prescribed clindamycin 600 mg p.o. t.i.d. for 12 days. The patient has been encouraged to monitor right lower extremity daily and ensure area continues to recede from previously marked line. Discussed wound care. Educated on signs of new/worsening condition and when to return to the emergency department. Encouraged the patient to follow up with her primary care provider next week to ensure for reassessment. In addition, I have provided the patient with name and number of Dr. Dagoberto Castillo, [place]. The patient can follow up with Dr. Castillo if her and her primary care deem necessary. 2. Diabetes. The patient should continue the medications as same. 3. Asthma. The patient to continue inhalers as needed. 4. Hypertension. The patient to continue medications as same including lisinopril 40 mg daily and amlodipine 10 mg daily. 5. Glaucoma. The patient should follow with her athletic team physician as recommended. This is the summarized report of a complex medical history and hospital stay. For further details, please see the entire medical record. This plan is reviewed with my attending, Dr. Lujan, who agrees with my plan. TIME SPENT: Approximately 45 minutes were spent on this discharge, greater than half that time was spent [id number] with the patient discussing discharge plans and instructions. BHAVANI GARCIA NP [id number]/[facility] #: [id number] [facility]ITAL[facility]
== END 2018-06-13 10:55 | disposition home or self-care (01) | DRG 383 ==
LOC: ED 20:02 → MED 22:13
PROVIDERS: ADMIT Pediatrics; ATTEND Hospitalist
DX: L03.115 Cellulitis of right lower limb (principal); E11.39 Type 2 diabetes mellitus with other diabetic ophthalmic complication; H42 Glaucoma in diseases classified elsewhere; M19.90 Unspecified osteoarthritis, unspecified site; J45.909 Unspecified asthma, uncomplicated; E66.01 Morbid (severe) obesity due to excess calories; I10 Essential (primary) hypertension; Z96.652 Presence of left artificial knee joint; Z88.8 Allergy status to other drugs, medicaments and biological substances; Z91.040 Latex allergy status; Z91.010 Allergy to peanuts; Z82.49 Family history of ischemic heart disease and other diseases of the circulatory system; Z68.38 Body mass index [BMI] 38.0-38.9, adult; Z82.5 Family history of asthma and other chronic lower respiratory diseases; Z82.0 Family history of epilepsy and other diseases of the nervous system; Z79.84 Long term (current) use of oral hypoglycemic drugs
CPT/HCPCS: 36415; 80048; 80053; 80202; 81003; 81015; 83036; 83605; 84443; 84484; 85025; 85610; 85730; 86618; 87040; 93005; 99284; A9270-GY; J1644; J3370

== ENCOUNTER 2019-05-03 07:15 | Emergency (ER) | payer BC ==
[2019-05-03 07:31] VITALS: BP 136/87
--- NOTE | 2019-05-03 07:43 | UC ---
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 no nasal drainage, no cough. afebrile. symptoms for three days. PMH asthma, dm, cellullitis with hosp admission May 2018 Pleasant 63 yo female c/o last 2-3 days progressive R lower tooth pain, sinus pain, R ear pain. No fever / chills. No rash. Has a dentist in [place], last seen for this tooth approx 3 months ago, trying to save the tooth. Yesterday increased pain, [place] with going in and out in cold air. No rash. No GI issues. No cough. Some post nasal drip. - History of Current Complaint Stated Complaint: DENTAL PAIN SINUS ISSUE Hx Obtained From: Patient Hx Last Menstrual Period: na Pain Intensity: 5 - Allergy/Home Medications Allergies/Adverse Reactions: Allergies Allergy/AdvReac Type Severity Reaction Status Date / Time hydrochlorothiazide Allergy rash, Verified 05/03/19 07:27 itching latex Allergy Rash Verified 05/03/19 07:27 metoprolol Allergy rash, Verified 05/03/19 07:27 itching peanut Allergy sharp Verified 05/03/19 07:27 abdominal pain Home Medications: Home Medications Ibuprofen 400 mg PO ONCE PRN 05/03/19 [History Confirmed 05/03/19] PMH/Surg Hx/FS Hx/Imm Hx Previously Healthy: Yes - Surgical History Surgical History: Yes Surgery Procedure, Year, and Place: left knee replacement. partial throidectomy - Family History Known Family History: Positive: Hypertension - Social History Alcohol Use: Occasionally Substance Use Type: None Smoking Status (MU): Never Smoked Tobacco - Immunization History Most Recent Influenza Vaccination: mar 2018 Most Recent Tetanus Shot: up to date Most Recent Pneumonia Vaccination: none Review of Systems All Other Systems Reviewed And Are Negative: Yes Constitutional: Positive: Negative - see hpi Skin: Positive: Negative Eyes: Positive: Negative ENT: Positive: Other - see hpi Respiratory: Positive: Negative Cardiovascular: Positive: Negative Gastrointestinal: Positive: Negative Genitourinary: Positive: Negative Motor: Positive: Negative Neurovascular: Positive: Negative Musculoskeletal: Positive: Negative, Calf Tenderness Neurological: Positive: Negative Psychological: Positive: Negative Is Patient Immunocompromised?: No Physical Exam Triage Information Reviewed: Yes Appearance: Well-Appearing - sitting up, looks tired, but nad, Well-Nourished Vital Signs: Initial Vital Signs Temp 98.6 F 05/03/19 07:22 Pulse 75 05/03/19 07:22 Resp 18 05/03/19 07:22 BP 136/87 05/03/19 07:22 Pulse Ox 96 05/03/19 07:22 Vital Signs Reviewed: Yes Eye Exam: Normal ENT: Positive: Other - L tm intact, scar noted. EAC a little excoriated, d/w pt R tm dull, rtx'd. not red. Mild post pharyng redness, no sores / exudates, uvula midline. R lower 2nd premolar cracked + gum inflammation, nonfluctuant. Tooth is tender. Neck exam: Normal Neck: Positive: Supple, Nontender, No Lymphadenopathy Respiratory Exam: Normal Respiratory: Positive: Chest non-tender, Lungs clear, Normal breath sounds, No respiratory distress, No accessory muscle use Cardiovascular Exam: Normal Cardiovascular: Positive: RRR, No Murmur, Pulses Normal, Brisk Capillary Refill Abdominal Exam: Normal Abdomen Description: Positive: Nontender Musculoskeletal Exam: Normal Neurological Exam: Normal Psychological Exam: Normal Skin Exam: Normal Course/Dx - Course Course Of Treatment: Reviewed meds / allergies. Will start aubmentin (in the event that sinus may be a component), and ibuprofen. D/w pt coa / tx plan. She will call her dentist tomorrow. - Diagnoses Provider Diagnosis: Toothache Discharge ED - Sign-Out/Discharge Documenting (check all that apply): Patient Departure All imaging exams completed and their final reports reviewed: No Studies - Discharge Plan Condition: Stable Disposition: HOME Prescriptions: Amoxicillin/Clavulanate TAB* [Augmentin TAB 875*] 875 mg PO BID #20 tab Ibuprofen TAB* [Motrin TAB* 600 MG] 600 mg PO Q8H PRN #30 tab PRN Reason: Pain Patient Education Materials: Toothache (ED), Serous Otitis Media (ED) Referrals: Mauricio Ortiz MD [Primary Care Provider] - Additional Instructions: Please follow up with your dentist - call tomorrow for appointment this week if possible. Seek medical attention for worse or new problems. Hydrate. Sleep with lots of pillows at night. - Billing Disposition and Condition Condition: STABLE Disposition: Home
== END 2019-05-03 08:23 | disposition home or self-care (01) ==
LOC: UCEAST 07:15
DX: K08.89 Other specified disorders of teeth and supporting structures (principal); J34.89 Other specified disorders of nose and nasal sinuses; H92.01 Otalgia, right ear; E11.9 Type 2 diabetes mellitus without complications; J45.909 Unspecified asthma, uncomplicated; R09.82 Postnasal drip; Z91.040 Latex allergy status; Z91.010 Allergy to peanuts; Z88.8 Allergy status to other drugs, medicaments and biological substances
CPT/HCPCS: 99212; G0463

== ENCOUNTER 2019-05-23 16:51 | Emergency (ER) | payer BC ==
[2019-05-23 17:01] VITALS: BP 182/71
--- NOTE | 2019-05-23 17:13 | UC ---
Respiratory Complaint HPI - HPI Summary HPI Summary: cold symptoms for 1 week worsening sinus and chest congestion - History of Current Complaint Chief Complaint: UCRespiratory Stated Complaint: CONGESTED Time Seen by Provider: 05/23/19 17:06 Hx Obtained From: Patient Hx Last Menstrual Period: na ?: No Onset/Duration: Gradual Onset, Lasting Weeks - 1, Still Present Timing: Constant Pain Intensity: 7 Pain Scale Used: Adult Non Verbal Character: Cough: Nonproductive Aggravating Factors: Nothing Alleviating Factors: Nothing Associated Signs And Symptoms: Positive: Pleuritic Chest Pain, URI, Nasal Congestion, Sinus Discomfort - Allergies/Home Medications Allergies/Adverse Reactions: Allergies Allergy/AdvReac Type Severity Reaction Status Date / Time hydrochlorothiazide Allergy rash, Verified 05/23/19 17:01 itching latex Allergy Rash Verified 05/23/19 17:01 metoprolol Allergy rash, Verified 05/23/19 17:01 itching peanut Allergy sharp Verified 05/23/19 17:01 abdominal pain Home Medications: Home Medications Guaifenesin/Dextromethorphan [Mucinex Dm ER 600-30 mg Tablet] 1 each PO Q12H [History Confirmed 05/23/19] Naproxen Sodium [Aleve] 220 mg PO Q12H PRN 05/23/19 [History Confirmed 05/23/19] PMH/Surg Hx/FS Hx/Imm Hx Previously Healthy: No Endocrine History: Diabetes, Thyroid Disease Cardiovascular History: Hypertension - Surgical History Surgical History: Yes Surgery Procedure, Year, and Place: left knee replacement. partial throidectomy - Family History Known Family History: Positive: Hypertension - Social History Occupation: Employed Full-time Lives: With Family Alcohol Use: Occasionally Substance Use Type: None Smoking Status (MU): Never Smoked Tobacco - Immunization History Most Recent Influenza Vaccination: mar 2018 Most Recent Tetanus Shot: up to date Most Recent Pneumonia Vaccination: none Review of Systems All Other Systems Reviewed And Are Negative: Yes Constitutional: Positive: Negative Skin: Positive: Negative Eyes: Positive: Negative ENT: Positive: Sinus Congestion, Sinus Pain/Tenderness Respiratory: Positive: Cough Cardiovascular: Positive: Negative Gastrointestinal: Positive: Negative Genitourinary: Positive: Negative Motor: Positive: Negative Neurovascular: Positive: Negative Musculoskeletal: Positive: Negative Neurological: Positive: Negative Psychological: Positive: Negative Is Patient Immunocompromised?: No Physical Exam Triage Information Reviewed: Yes Appearance: Well-Appearing, No Pain Distress, Well-Nourished Vital Signs: Initial Vital Signs Temp 99.0 F 05/23/19 16:56 Pulse 105 05/23/19 16:56 Resp 26 05/23/19 16:56 BP 182/71 05/23/19 16:56 Pulse Ox 97 05/23/19 16:56 Vital Signs Reviewed: Yes Eye Exam: Normal Eyes: Positive: Conjunctiva Clear ENT Exam: Normal ENT: Positive: Normal ENT inspection, Hearing grossly normal, Pharynx normal, Nasal congestion, TMs normal, Sinus tenderness, Uvula midline. Negative: Tonsillar swelling, Tonsillar exudate, Trismus, Muffled voice, Hoarse voice, Dental tenderness Dental Exam: Normal Neck exam: Normal Neck: Positive: Supple, Nontender, No Lymphadenopathy Respiratory Exam: Normal Respiratory: Positive: Chest non-tender, Lungs clear, Normal breath sounds, No respiratory distress, No accessory muscle use Cardiovascular Exam: Normal Cardiovascular: Positive: RRR, No Murmur, Pulses Normal, Brisk Capillary Refill Musculoskeletal Exam: Normal Musculoskeletal: Positive: Strength Intact, ROM Intact, No Edema Neurological Exam: Normal Neurological: Positive: Alert, Muscle Tone Normal Psychological Exam: Normal Skin Exam: Normal Respiratory Course/Dx - Course Course Of Treatment: increase fluids, avoid sudafed type medications, tessalon, flonase, augmentin follow with pcp in 1-2 weeks - Differential Dx/Diagnosis Provider Diagnosis: Sinusitis, acute, Cough Discharge ED - Sign-Out/Discharge Documenting (check all that apply): Patient Departure All imaging exams completed and their final reports reviewed: No Studies - Discharge Plan Condition: Stable Disposition: HOME Prescriptions: Amoxicillin/Clavulanate TAB* [Augmentin TAB 875*] 875 mg PO BID #20 tab Benzonatate CAP* [Tessalon 100 MG CAP*] 1 - 2 cap PO TID PRN #50 cap PRN Reason: Cough Fluticasone NASAL SPRAY 50MCG* [Flonase NASAL SPRAY 50MCG*] 2 spray BOTH NARES DAILY #1 btl Patient Education Materials: Sinusitis (ED), Acute Bronchitis (ED), Hypertension (ED) Referrals: Mauricio Ortiz MD [Primary Care Provider] - 2 Weeks - Billing Disposition and Condition Condition: STABLE Disposition: Home
--- OUTSIDE RECORDS SUMMARY | 2019-05-26 15:43 | XMS REPORT | Continuity of Care Document ---
:1955 External Reference #:[id number] Author Name Michael Blank, OD Address [address] [place] [address] Care Team Providers Name Role Phone Joselin Steele MD Care Team Information Editorial Cartoonist [phone] Problems Active Problems Provider Date Ocular hypertension Michael Christina O.D. Onset: 12/07/2013 Conjunctival hemorrhage Myron Nieves M.D. Onset: 07/30/2016 Social History Type Date Description Comments Sex Unknown ETOH Use Denies alcohol use Tobacco Use Start: Unknown Patient has never smoked Smoking Status Reviewed: 04/13/19 Patient has never smoked Allergies, Adverse Reactions, Alerts Active Allergies Reaction Severity Comments Date Lisinopril 12/07/2013 Inactive Allergies NKDA 12/03/2013 Medications Active Medications SIG Qnty Indications Ordering Date Provider Latanoprost 1 drops both 7.5ml Michael Blank, 10/06/2018 0.005% Solution eyes every OD night Dorzolamide HCL/Timolol instill 1 drop 10units Michael Blank, 10/06/2018 Maleate Qam OU OD 22.3-6.8mg/ml Solution Irbesartan Unknown 75mg Tablets Hydrochlorothiazide Unknown 12.5mg Capsules Tolterodine Tartrate Unknown 2mg Tablets Osteo Bi-Flex Advanced Unknown Triple Strength Tablets Fish Oil Unknown 1200mg Capsules DR One Daily Womens 50+ Unknown 50+ Tablets Coconut Oil Unknown 1000mg Capsules Metronidazole Unknown 0.75% Cream Immunizations Description No Information Available Vital Signs Date Vital Result Comment 01/12/2019 8:42am Intraocular Pressure Right Eye 14 mmHg Intraocular Pressure Left Eye 16 mmHg 10/06/2018 10:22am Intraocular Pressure Right Eye 18 mmHg Intraocular Pressure Left Eye 16 mmHg Results Description No Information Available Procedures Date Code Description Status 01/12/2019 40305 Oct, Optic Nerve Completed 01/12/2019 82121 Eye Exam Est Intermediate Completed Medical Devices Description No Information Available Encounters Description No Information Available Assessments Date Code Description Provider 04/14/2019 H40.1131 Primary open-angle glaucoma, bilateral, mild Michael Blank, OD stage 04/14/2019 H25.13 Age-related nuclear cataract, bilateral Michael Blank, OD 04/14/2019 H52.4 Presbyopia Michael Blank, OD 01/12/2019 H40.1131 Primary open-angle glaucoma, bilateral, mild Michael Blank, OD stage 01/12/2019 H25.13 Age-related nuclear cataract, bilateral Michael Blank, OD Plan of Treatment 04/14/2019 - Michaelnikunj Blank, ODH40.1131 Primary open-angle glaucoma, bilateral, mild foijvV78.13 Age-related nuclear cataract, xzaerygfnV41.4 PresbyopiaFollow up:3 mos VF, sooner PRN Functional Status Description No Information Available Mental Status Description No Information Available Referrals Description No Information Available
--- OUTSIDE RECORDS SUMMARY | 2019-05-26 15:43 | XMS REPORT | Continuity of Care Document ---
:1955 External Reference #:[id number] Author Name Michael Blank, OD Address [address] [place] [address] Care Team Providers Name Role Phone Joselin Steele MD Care Team Information Palliative Nurse [phone] Problems Active Problems Provider Date Ocular hypertension [...] Latanoprost 1 drops both 7.5ml Michael Blank, 04/14/2019 0.005% Solution eyes every OD night Dorzolamide HCL/Timolol instill 1 drop 10units Michael Blank, 04/14/2019 Maleate twice a day OD 22.3-6.8mg/ml Solution both eyes Irbesartan Unknown 75mg Tablets Hydrochlorothiazide Unknown 12.5mg Capsules Tolterodine Tartrate Unknown 2mg Tablets Osteo Bi-Flex Advanced Unknown Triple Strength Tablets Fish Oil Unknown 1200mg Capsules DR One Daily Womens 50+ Unknown 50+ Tablets Coconut Oil Unknown 1000mg Capsules Metronidazole Unknown 0.75% Cream History Medications Dorzolamide HCL/Timolol instill 1 drop 10units Michael Blank, 04/14/2019 - Maleate Qam OU OD 04/14/2019 22.3-6.8mg/ml Solution Immunizations Description No Information Available Vital Signs Date Vital Result Comment 04/14/2019 9:43am Intraocular Pressure Right Eye 16 mmHg Intraocular Pressure Left Eye 17 mmHg 01/12/2019 8:42am Intraocular Pressure Right Eye 14 mmHg Intraocular Pressure Left Eye 16 mmHg Results Description No Information Available Procedures Date Code Description Status 01/12/2019 93303 Oct, Optic Nerve Completed 01/12/2019 44065 Eye Exam Est Intermediate Completed Medical Devices [...] bilateral Michael Blank, OD Plan of Treatment Future Appointment(s):07/20/2019 10:45 am - Michael Blank, OD at [id number] - Michael Blank, ODH40.1131 Primary open-angle glaucoma, bilateral, mild qtdvjZ64.13 Age-related nuclear cataract, ndvcceyhyF82.4 PresbyopiaFollow up:3 mos VF, sooner PRN Functional Status Description No Information Available Mental Status Description No Information Available Referrals Description No Information Available
== END 2019-05-23 17:24 | disposition home or self-care (01) ==
LOC: UCEAST 16:51
DX: J01.90 Acute sinusitis, unspecified (principal); R05 Cough; Z88.8 Allergy status to other drugs, medicaments and biological substances; Z91.040 Latex allergy status; Z91.010 Allergy to peanuts
CPT/HCPCS: 99212; G0463

== ENCOUNTER 2019-06-16 07:14 | Emergency (ER) | payer BC ==
[2019-06-16 07:24] VITALS: BP 127/85
--- NOTE | 2019-06-16 07:34 | UC ---
Skin Complaint HPI - HPI Summary HPI Summary: PATIENT HAS HAD SEVERAL WEEKS OF SKIN IRRITATION ON HER LEFT CALF. NO TRAUMA. SHE IS DIABETIC. STATES HER GLUCOSE IS WELL-CONTROLLED BUT ADMITS SHE DOES NOT CHECK HER LEVELS IN THE MORNING AND DOES NOT KNOW HER A1C. NO SPREADING REDNESS OF THE SKIN. NO DRAINAGE. NO FEVER. STATES SHE HAD A SKIN LESION LAST YEAR THAT STARTED OUT SIMILARLY BUT THEN SHE ENDED UP BEING HOSPITALIZED FOR INFECTION. - History of Current Complaint Chief Complaint: UCSkin Time Seen by Provider: 06/16/19 07:19 Stated Complaint: SKIN COMPLAINT Hx Obtained From: Patient Hx Last Menstrual Period: na Onset/Duration: Gradual Onset, Lasting Weeks, Still Present Timing: Constant Onset Severity: Mild Current Severity: Moderate Pain Intensity: 5 Pain Scale Used: 0-10 Numeric Character: Pain, Redness Aggravating Factor(s): Touch Alleviating Factor(s): Nothing Associated Signs & Symptoms: Positive: Rash - Allergy/Home Medications Allergies/Adverse Reactions: Allergies Allergy/AdvReac Type Severity Reaction Status Date / Time hydrochlorothiazide Allergy rash, Verified 06/16/19 07:24 itching latex Allergy Rash Verified 06/16/19 07:24 metoprolol Allergy rash, Verified 06/16/19 07:24 itching peanut Allergy sharp Verified 06/16/19 07:24 abdominal pain environmental Allergy Difficulty Uncoded 06/16/19 07:25 Breathing/Wheezing Home Medications: Home Medications Hydrocortisone Acetate [Hydrocortisone] 1 applic TOPICAL ONCE PRN 06/16/19 [ History Confirmed 06/16/19] PMH/Surg Hx/FS Hx/Imm Hx Endocrine History: Diabetes Cardiovascular History: Hypertension Respiratory History: Asthma - Surgical History Surgical History: Yes Surgery Procedure, Year, and Place: left knee replacement. partial throidectomy - Family History Known Family History: Positive: Hypertension - Social History Alcohol Use: Occasionally Substance Use Type: None Smoking Status (MU): Never Smoked Tobacco - Immunization History Most Recent Influenza Vaccination: mar 2018 Most Recent Tetanus Shot: up to date Most Recent Pneumonia Vaccination: none Review of Systems All Other Systems Reviewed And Are Negative: Yes Constitutional: Positive: Negative Skin: Positive: Rash Respiratory: Positive: Negative Cardiovascular: Positive: Negative Gastrointestinal: Positive: Negative Physical Exam Triage Information Reviewed: Yes Appearance: Well-Appearing, No Pain Distress, Well-Nourished Vital Signs: Initial Vital Signs Temp 99.2 F 06/16/19 07:18 Pulse 75 12/24/19 07:18 Resp 18 06/16/19 07:18 BP 127/85 06/16/19 07:18 Pulse Ox 96 06/16/19 07:18 Vital Signs Reviewed: Yes Eyes: Positive: Conjunctiva Clear ENT: Positive: Hearing grossly normal Neck: Positive: Supple Respiratory: Positive: No respiratory distress, No accessory muscle use Cardiovascular: Positive: Pulses Normal Abdomen Description: Positive: Soft Musculoskeletal: Positive: No Edema Neurological: Positive: Alert Psychological: Positive: Age Appropriate Behavior Skin: Positive: Other - 5CM X 5CM AREA OF SPFL SKIN BREAKDOWN/CRACKING LEFT POSTREIOR CALF. DIFFUSELY DRY FLAKY SKIN. Course/Dx - Course Course Of Treatment: PATIENT HAS VISIBLY DRY, FLAKY SKIN ON BOTH HER LOWER EXTREMITIES. STATES SHE HAS TRIED TO START USING MOISTURIZER RECENTLY BUT THAT IT MCGEE HER CRACKED SKIN. ADVISED SHE USE A HYPOALLERGENIC MOISTURIZER TWICE DAILY OR JUST PLAIN VASELINE TO HELP KEEP HER SKIN HYDRATED AND TO ENCOURAGE HEALING. SHE IS CONCERNED ABOUT INFECTION SHE HAD A LESION THAT BEGAN SIMILARLY LAST YEAR THAT RESULTED IN INFECTION FOR WHICH SHE WAS HOSPITALIZED. WILL GIVE 5 DAYS OF PROPHYLACTIC KEFLEX. FOLLOW-UP WITH HER PCP. - Diagnoses Provider Diagnosis: Dry skin dermatitis Discharge ED - Sign-Out/Discharge Documenting (check all that apply): Patient Departure All imaging exams completed and their final reports reviewed: No Studies - Discharge Plan Condition: Stable Disposition: HOME Prescriptions: Cephalexin CAP* [Keflex 500 CAP*] 500 mg PO BID #10 cap Patient Education Materials: Dermatitis (ED) Referrals: Mauricio Ortiz MD [Primary Care Provider] - 2 Weeks Additional Instructions: YOU HAVE EXTREMELY DRY SKIN WHICH IS CRACKING. APPLY A HYPOALLERGENIC LOTION TWICE DAILY. GIVEN YOUR HISTORY WILL GIVE A SHORT COURSE OF ANTIBIOTICS TO PREVENT INFECTION. IF YOUR SKIN DOES NOT HEAL OVER IN A COUPLE OF WEEK FOLLOW- UP WITH WOUND CARE. [facility] [phone] - Billing Disposition and Condition Condition: STABLE Disposition: Home
== END 2019-06-16 07:56 | disposition home or self-care (01) ==
LOC: UCEAST 07:14
DX: L85.3 Xerosis cutis (principal); E11.9 Type 2 diabetes mellitus without complications; I10 Essential (primary) hypertension; J45.909 Unspecified asthma, uncomplicated; Z96.651 Presence of right artificial knee joint; Z91.040 Latex allergy status; Z88.8 Allergy status to other drugs, medicaments and biological substances
CPT/HCPCS: 99212; G0463

== ENCOUNTER 2023-01-17 11:42 | Inpatient (IN) ==
[2023-01-17] MEDS ORDERED: Iodixanol (CONTRAST) 320 MG/ML 100 ML SDV IV ONE ×2 (12:27→18:32)
[2023-01-17 12:35] LABS: ABS Basophils 0.1 10^3/uL (0.0-0.1); ABS Eosinophils 0.3 10^3/uL (0.0-0.5); ABS Lymphocytes 2.8 10^3/uL (1.0-4.8); ABS Neutrophils 5.2 10^3/uL (1.5-7.6); Eosinophil % 2.7 %; Hematocrit 43.1 % (35-45); Hemoglobin 14.1 g/dL (11.5-14.3); Lymphocyte % 29.9 %; Mean Corpuscular Hemoglobin 26.1 pg (27-33); Mean Corpuscular Hgb Conc 32.7 g/dL (31-36); Mean Platelet Volume 7.4 fL (7.5-11.2); Platelet Count 365 10^3/uL (150-450); Red Blood Count 5.39 10^6/uL (3.63-4.92); Red Cell Distribution Width 17.2 % (12-17); White Blood Count 9.4 10^3/uL (3.8-11.8)
[2023-01-17 12:37] LABS: Albumin 4.1 g/dL (3.2-5.2); Albumin/Globulin Ratio 1.3 (1-3); Calcium 9.2 mg/dL (8.6-10.3); Creatinine, Serum 0.63 mg/dL (0.51-0.95); Globulin 3.2 g/dL (2-4); Potassium 3.5 mmol/L (3.5-5.0); Total Bilirubin 0.5 mg/dL (0.2-1.0); Total Protein 7.3 g/dL (6.4-8.9); eGFR CKD-EPI 97.8 (>60)
[2023-01-17 12:39] LABS: INR 1.3 (0.88-1.18)
[2023-01-17] MEDS ORDERED: levETIRAcetam 1000MG IVPREMIX 1,000 MG/100 ML BAG IVPB ONE (14:44)
[2023-01-17] MEDS ORDERED: Dexamethasone IV 4 MG/ML VIAL 1 ml VIAL IV SLOW PU ONE (14:44)
[2023-01-17 15:16] LABS: Urine Appearance Cloudy; Urine Bilirubin Negative (Negative); Urine Blood 2+ (Negative); Urine Color Yellow; Urine Glucose 3+(>=500 mg/dL) (Negative); Urine Ketones Trace (Negative); Urine Nitrite Positive (Negative); Urine Protein Negative (Negative); Urine Specific Gravity 1.016 (1.002-1.030); Urine Urobilinogen Negative (Negative)
[2023-01-17] MEDS ORDERED: Gadoteridol (CONTRAST) 279.3 MG/ML 10 ML IV ONE (15:16)
[2023-01-17 15:24] LABS: Urine Bacteria 1+ (Absent); Urine Red Blood Cell 1+(3-5/hpf) (Absent); Urine Squamous Epithelial Cell Present (Absent); Urine White Blood Cell Trace(0-5/hpf) (Absent)
[2023-01-17] MEDS: levETIRAcetam 500 MG IVPREMIX 500 MG/100 ML BAG IV SCH (19:26)
[2023-01-17] MEDS ORDERED: Dextrose 50% Syringe 50 ml 25 GM/50 ML SYRINGE IV PUSH PRN (20:23)
[2023-01-17] MEDS: Dexamethasone IV 4 MG/ML VIAL 1 ml VIAL IV SLOW PU SCH (22:23)
[2023-01-17] MEDS: Enoxaparin 40 MG/0.4 ML SYR SUBCUT SCH (22:24)
[2023-01-18] MEDS: Dexamethasone IV 4 MG/ML VIAL 1 ml VIAL IV SLOW PU SCH ×7 (02:41→21:59)
[2023-01-18] MEDS: levETIRAcetam 500 MG IVPREMIX 500 MG/100 ML BAG IV SCH (05:21)
[2023-01-18 06:45] LABS: ABS Lymphocytes 1.1 10^3/uL (1.0-4.8); ABS Nucleated RBC 0.01 10^3/ul; Hematocrit 41.5 % (35-45); Hemoglobin 13.8 g/dL (11.5-14.3); Lymphocyte % 18.5 %; Mean Corpuscular Hemoglobin 26.4 pg (27-33); Mean Corpuscular Hgb Conc 33.1 g/dL (31-36); Mean Corpuscular Volume 79.8 fL (80-97); Nucleated Red Blood Cells % 0.1 /100 WBC (0.0-0.4); Platelet Count 342 10^3/uL (150-450); Red Blood Count 5.21 10^6/uL (3.63-4.92); White Blood Count 6.2 10^3/uL (3.8-11.8)
[2023-01-18 06:59] LABS: C Reactive Protein 8.09 mg/L (<8.01); Creatinine, Serum 0.59 mg/dL (0.51-0.95); Magnesium 1.8 mg/dL (1.9-2.7); Potassium 3.8 mmol/L (3.5-5.0); eGFR CKD-EPI 99.3 (>60)
[2023-01-18] MEDS ORDERED: Magnesium Sulfate IV 1GM/100ML 1 GM/100 ML BAG IV ONE (07:15)
[2023-01-18] MEDS: Timolol 0.5% OPTH.SOL BTL BOTH EYES SCH (11:26)
[2023-01-18] MEDS: Enoxaparin 40 MG/0.4 ML SYR SUBCUT SCH (18:16)
[2023-01-19] MEDS: Dexamethasone IV 4 MG/ML VIAL 1 ml VIAL IV SLOW PU SCH ×5 (02:44→23:26)
[2023-01-19 06:21] LABS: Calcium 9.2 mg/dL (8.6-10.3); Creatinine, Serum 0.54 mg/dL (0.51-0.95); Potassium 3.9 mmol/L (3.5-5.0); eGFR CKD-EPI 101.5 (>60)
[2023-01-19] MEDS: Albuterol HFA INHALER 8 gm MDI INH PRN (08:11)
[2023-01-19] MEDS: Timolol 0.5% OPTH.SOL BTL BOTH EYES SCH (08:23)
[2023-01-19] MEDS ORDERED: Senna TAB 8.6 mg TAB PO PRN (11:56)
[2023-01-19] MEDS ORDERED: Magnesium Hydroxide LIQ 30 ML UDC PO PRN (11:56)
[2023-01-19 17:21] LABS: INR 1.26 (0.88-1.18)
[2023-01-19] MEDS: Heparin 5000 UNITS/ML 1 mL VIAL SUBCUT SCH (21:05)
[2023-01-20] MEDS: Dexamethasone IV 4 MG/ML VIAL 1 ml VIAL IV SLOW PU SCH ×3 (06:03→17:10)
[2023-01-20] MEDS: Heparin 5000 UNITS/ML 1 mL VIAL SUBCUT SCH ×2 (08:33→22:16)
[2023-01-20] MEDS: Timolol 0.5% OPTH.SOL BTL BOTH EYES SCH (08:39)
[2023-01-20] MEDS: Albuterol HFA INHALER 8 gm MDI INH PRN (13:53)
[2023-01-20] MEDS: Insulin GLARGINE 100 un/ml 10 ml VIAL SUBCUT SCH (22:15)
[2023-01-21] MEDS: Dexamethasone IV 4 MG/ML VIAL 1 ml VIAL IV SLOW PU SCH ×4 (00:37→17:27)
[2023-01-21] MEDS ORDERED: Chlorhexidine MOUTHWASH 0.12% 15 ML UDC ONE (06:24)
[2023-01-21 06:33] LABS: Hematocrit 42.2 % (35-45); Hemoglobin 13.9 g/dL (11.5-14.3); Mean Corpuscular Hemoglobin 26.3 pg (27-33); Mean Corpuscular Volume 79.6 fL (80-97); Mean Platelet Volume 7.5 fL (7.5-11.2); Platelet Count 372 10^3/uL (150-450); Red Cell Distribution Width 17.3 % (12-17); White Blood Count 12.2 10^3/uL (3.8-11.8)
[2023-01-21] MEDS ORDERED: fentaNYL 100 mcg/2 ml 50 MCG/ML VIAL ONE (06:35)
[2023-01-21] MEDS ORDERED: Lidocaine 2% PF 5 ML VIAL ONE (06:35)
[2023-01-21] MEDS ORDERED: Midazolam 2 mg/2 ml VIAL 1 mg/ml 2 ml VIAL (2 mg) ONE (06:35)
[2023-01-21] MEDS ORDERED: Ondansetron 4 mg VIAL 2 MG/ML 2 ml VIAL ONE ×2 (06:35→09:18)
[2023-01-21] MEDS ORDERED: Dexamethasone IV 4 MG/ML VIAL 1 ml VIAL ONE (06:35)
[2023-01-21] MEDS ORDERED: Propofol 10 MG/ML 20 ML BTL ONE (06:35)
[2023-01-21] MEDS ORDERED: Rocuronium 50 mg VIAL 10 mg/ml 5 ml VIAL (50 mg) ONE ×2 (06:37→08:22)
[2023-01-21 06:38] LABS: INR 1.24 (0.88-1.18)
[2023-01-21] MEDS ORDERED: Buffered Lidocaine 1% SYRIN 1 ml ONE (06:51)
[2023-01-21] MEDS ORDERED: Lidocaine 1% w EPI 1:100,000 MDV 20 ML VIAL ONE (07:12)
[2023-01-21] MEDS ORDERED: Gelfoam Sponge SIZE 100 SPONGE ONE (07:12)
[2023-01-21] MEDS ORDERED: Mannitol 25% (12.5 GM) 50 ML 12.5 GM/50 ML VIAL ONE (07:12)
[2023-01-21] MEDS ORDERED: Thrombin 5,000 UNITS 1 APPLIC KIT - topical use - TOPICAL ONE ×2 (07:12→09:12)
[2023-01-21] MEDS ORDERED: ceFAZolin 2 GM in NS PREMIX 2 GM/100 ML BAG IVPB ONE (07:20)
[2023-01-21] MEDS ORDERED: fentaNYL 250 mcg/5 ml 50 MCG/ML 5 ml VIAL (250 MCG) ONE (07:27)
[2023-01-21] MEDS ORDERED: Acetaminophen IV 1 GM/100ML 1,000 MG/100 ML BAG IV ONE (08:24)
[2023-01-21] MEDS ORDERED: Phenylephrine 40 mcg/mL 10mL (400mcg) SYRINGE ONE (08:30)
[2023-01-21 08:47] LABS: PCO2 Arterial 45 mmHg (35-45); PO2 Arterial 143 mmHg (80-100)
[2023-01-21 09:07] LABS: Calcium 8.2 mg/dL (8.6-10.3); Potassium 3.8 mmol/L (3.5-5.0)
[2023-01-21 09:12] LABS: Creatinine, Serum 0.54 mg/dL (0.51-0.95); eGFR CKD-EPI 101.5 (>60)
[2023-01-21] MEDS ORDERED: Furosemide 20 mg/2 ml IV VIAL ONE (09:13)
[2023-01-21] MEDS ORDERED: Calcium CHLORIDE 10% SYRINGE 1 GM/10 ML ONE (09:16)
[2023-01-21] MEDS ORDERED: Ondansetron 4 mg VIAL 2 MG/ML 2 ml VIAL IV PRN ×2 (09:36→13:08)
[2023-01-21] MEDS ORDERED: fentaNYL 100 mcg/2 ml 50 MCG/ML VIAL IV PRN (09:36)
[2023-01-21] MEDS ORDERED: HYDROmorphone 1 MG/1 ML SYRINGE IV PRN (09:36)
[2023-01-21] MEDS ORDERED: Naloxone 0.4 mg VIAL 0.4 mg/ml 1 ml VIAL IV PRN (09:36)
[2023-01-21] MEDS ORDERED: Sugammadex 500 MG/5 ML 5 ml VIAL IV PUSH ONE (10:04)
[2023-01-21] MEDS: Heparin 5000 UNITS/ML 1 mL VIAL SUBCUT SCH (11:28)
[2023-01-21] MEDS: Timolol 0.5% OPTH.SOL BTL BOTH EYES SCH (11:35)
[2023-01-21] MEDS ORDERED: Labetalol IV 5 MG/ML 20 ml VIAL IV PUSH PRN (13:01)
[2023-01-21] MEDS ORDERED: hydrALAZINE 20 mg/ml 1 ML Vial IV IV SLOW PU PRN (13:03)
[2023-01-21] MEDS ORDERED: HYDROcodone/ACETAMIN 5/325 mg TAB PO PRN (13:05)
[2023-01-21] MEDS: Insulin GLARGINE 100 un/ml 10 ml VIAL SUBCUT SCH (20:22)
[2023-01-22] MEDS: Dexamethasone IV 4 MG/ML VIAL 1 ml VIAL IV SLOW PU SCH ×5 (00:15→23:08)
[2023-01-22] MEDS: HYDROcodone/ACETAMIN 5/325 mg TAB PO PRN ×2 (04:08→18:48)
[2023-01-22 04:43] LABS: ABS Lymphocytes 1.2 10^3/uL (1.0-4.8); ABS Neutrophils 11.6 10^3/uL (1.5-7.6); Eosinophil % 0.1 %; Hematocrit 38.7 % (35-45); Hemoglobin 12.8 g/dL (11.5-14.3); Lymphocyte % 8.8 %; Mean Corpuscular Hemoglobin 26.4 pg (27-33); Mean Corpuscular Volume 79.8 fL (80-97); Mean Platelet Volume 7.4 fL (7.5-11.2); Platelet Count 307 10^3/uL (150-450); Red Blood Count 4.84 10^6/uL (3.63-4.92); Red Cell Distribution Width 17.2 % (12-17)
[2023-01-22 04:58] LABS: Calcium 8.7 mg/dL (8.6-10.3); Creatinine, Serum 0.58 mg/dL (0.51-0.95); Magnesium 1.8 mg/dL (1.9-2.7); Potassium 4.2 mmol/L (3.5-5.0); eGFR CKD-EPI 99.7 (>60)
[2023-01-22] MEDS ORDERED: Magnesium Sulfate 2 gm BAG 2 GM/50 ML BAG IVPB ONE (07:19)
[2023-01-22] MEDS: Timolol 0.5% OPTH.SOL BTL BOTH EYES SCH (08:58)
[2023-01-22] MEDS: Insulin GLARGINE 100 un/ml 10 ml VIAL SUBCUT SCH (22:18)
[2023-01-23] MEDS: Dexamethasone IV 4 MG/ML VIAL 1 ml VIAL IV SLOW PU SCH (05:15)
[2023-01-23] MEDS: HYDROcodone/ACETAMIN 5/325 mg TAB PO PRN (05:30)
[2023-01-23 05:53] LABS: ABS Lymphocytes 1.3 10^3/uL (1.0-4.8); ABS Neutrophils 12.4 10^3/uL (1.5-7.6); ABS Nucleated RBC 0.01 10^3/ul; Hematocrit 40.6 % (35-45); Hemoglobin 13.6 g/dL (11.5-14.3); Lymphocyte % 8.7 %; Mean Corpuscular Hemoglobin 26.4 pg (27-33); Mean Corpuscular Hgb Conc 33.4 g/dL (31-36); Mean Platelet Volume 7.2 fL (7.5-11.2); Nucleated Red Blood Cells % 0.1 /100 WBC (0.0-0.4); Platelet Count 300 10^3/uL (150-450); Red Blood Count 5.14 10^6/uL (3.63-4.92); Red Cell Distribution Width 17.5 % (12-17); White Blood Count 14.7 10^3/uL (3.8-11.8)
[2023-01-23 06:10] LABS: Calcium 8.4 mg/dL (8.6-10.3); Creatinine, Serum 0.6 mg/dL (0.51-0.95); Magnesium 1.9 mg/dL (1.9-2.7); Potassium 4.1 mmol/L (3.5-5.0); eGFR CKD-EPI 98.9 (>60)
[2023-01-23] MEDS: Timolol 0.5% OPTH.SOL BTL BOTH EYES SCH (09:45)
[2023-01-23] MEDS ORDERED: Sulfur Hexaflouride MICROSPHR 25 MG VIAL ONE (14:58)
[2023-01-23] MEDS: Insulin GLARGINE 100 un/ml 10 ml VIAL SUBCUT SCH (20:50)
[2023-01-24 05:45] VITALS: BP 125/76
[2023-01-24 05:53] LABS: ABS Lymphocytes 1.5 10^3/uL (1.0-4.8); ABS Neutrophils 12.2 10^3/uL (1.5-7.6); ABS Nucleated RBC 0.01 10^3/ul; Hematocrit 39.7 % (35-45); Hemoglobin 13.2 g/dL (11.5-14.3); Mean Corpuscular Hemoglobin 26.3 pg (27-33); Mean Corpuscular Hgb Conc 33.1 g/dL (31-36); Mean Corpuscular Volume 79.5 fL (80-97); Mean Platelet Volume 7.1 fL (7.5-11.2); Platelet Count 247 10^3/uL (150-450); Red Cell Distribution Width 17.3 % (12-17); White Blood Count 14.7 10^3/uL (3.8-11.8)
[2023-01-24 06:11] LABS: Calcium 8.7 mg/dL (8.6-10.3); Creatinine, Serum 0.62 mg/dL (0.51-0.95); Magnesium 1.8 mg/dL (1.9-2.7); Phosphorus 3.6 mg/dL (2.5-5.0); Potassium 4.1 mmol/L (3.5-5.0); eGFR CKD-EPI 98.2 (>60)
[2023-01-24] MEDS ORDERED: Magnesium Sulfate 2 gm BAG 2 GM/50 ML BAG IVPB ONE (07:10)
[2023-01-24] MEDS: Timolol 0.5% OPTH.SOL BTL BOTH EYES SCH (08:30)
== END 2023-01-24 11:05 | disposition home or self-care (01) | DRG 21 ==
LOC: ED 11:42 → SUATTDRO 17:29 → EDHOLD 17:29 → MED 18:41 → ICU 01-21 10:47 → SSU 01-22 18:31
PROVIDERS: ADMIT Internal Medicine; ATTEND Internal Medicine